=== PATIENT | female | born 1935 | race Caucasian/White ===

== ENCOUNTER → 2016-11-24 | Outpatient (CLI) | payer MEDICARE, OTHER ==
--- NOTE | 2016-11-24 09:11 | MRI ---
Study: MRI of the Left Hip. Indication: HIP PAIN Technique: Multiplanar, multi sequence MRI of the left hip was obtained without intravenous contrast. Comparison: None. Findings: No acute fracture or osteonecrosis of the pelvis or left hip. At the central left acetabular roof there is a focus of subchondral sclerosis surrounded by mild marrow edema which is likely secondary to a chronic occult overlying grade 4 chondral lesion. Grade 3 chondral thinning noted throughout the majority of the left hip joint. Physiologic volume left hip joint fluid. Degenerative tearing anterior superior left hip labrum suspected. Less pronounced grade 2/3 chondrosis throughout the right hip joint suspected without subchondral marrow change. Mild left greater trochanteric bursal edema. High-grade tendinosis bilateral hamstring tendon origins, left greater than right. No acute pelvic tendon tear. Mild pubic symphysis osteoarthritis. Lower lumbar fusion construct partially visualized. Impression: Mild to moderate left hip osteoarthritis with focal areas of subchondral marrow change central acetabular roof as detailed above. No acute fracture or osteonecrosis. Degenerative tearing anterior superior left hip labrum. Mild right hip osteoarthritis. Additional findings as above. Electronically signed by: Nicolás Barber MD 11/24/2016 09:11
== END | disposition home or self-care (01) ==
LOC: MRI 07:38
PROVIDERS: ATTEND Orthopaedic Surgery
DX: M16.11 Unilateral primary osteoarthritis, right hip (principal)

== ENCOUNTER → 2017-01-24 | Outpatient (CLI) | payer MEDICARE, OTHER ==
--- NOTE | 2017-01-24 18:59 | CT ---
EXAM DESCRIPTION: Abdomen/Pelvis w/wo Contrast CLINICAL HISTORY: DIVERTICULITIS / ABD PAIN COMPARISON: None Available TECHNIQUE: Contiguous axial images of the abdomen and pelvis were obtained followed by reconstruction images. This exam was performed according to our departmental dose-optimization program, which includes automated exposure control, adjustment of the mA and/or kV according to patient size and/or use of iterative reconstruction technique. FINDINGS: Linear opacities within the lungs may represent scar versus subsegmental atelectasis. Patient is status post cholecystectomy. There is atherosclerosis. Patient is status post lumbar surgery. Calcifications within the pelvis may represent phleboliths. Fluid levels within the colon could be secondary to a diarrheal state. Appendix was not visualized, there is no pericecal inflammation. The liver, spleen, pancreas and kidneys are within normal limits. There is no hydronephrosis or renal stones. Aorta is of normal caliber and tapering. There is no free fluid in the abdomen or pelvis. There is no bowel obstruction. There is no stranding of the mesenteric fat to suggest an inflammatory response. Focal mucosal thickening of the sigmoid colon, axial image 84 without discrete stranding of the adjacent fat. IMPRESSION: Air-fluid levels within the colon could be secondary to a diarrheal state. Questionable focal mucosal thickening of the sigmoid colon without stranding of the adjacent fat could be secondary to an infectious, inflammatory colitis of unknown chronicity. Recommend follow-up. Electronically signed by: Ronald Lewis MD 01/24/2017 6:57 PM CDT
== END | disposition home or self-care (01) ==
LOC: CT 17:13
PROVIDERS: ATTEND Nurse Practitioner Family
DX: R10.84 Generalized abdominal pain (principal)

== ENCOUNTER → 2017-06-21 | Outpatient (CLI) | payer MEDICARE, OTHER ==
--- NOTE | 2017-06-21 10:54 | RAD ---
EXAM DESCRIPTION: Foot,Right 3 Views CLINICAL HISTORY: 82 years, Female, PAIN COMPARISON: FINDINGS: Three views do not demonstrate fracture or dislocation. Moderate degenerative change with narrowing and spurring 1st metatarsal phalangeal joint. Small plantar heel spur. IMPRESSION: No fracture or dislocation. Mild degenerative change 1st metatarsophalangeal joint. Plantar heel spur. Electronically signed by: Konrad Berkowitz MD 06/21/2017 10:53 AM CDT
== END | disposition home or self-care (01) ==
LOC: RAD 07:36
PROVIDERS: ATTEND Orthopaedic Surgery
DX: M79.671 Pain in right foot (principal)

== ENCOUNTER 2018-08-22 07:03 | Emergency (ER) | payer MEDICARE, OTHER ==
--- NOTE | 2018-08-22 07:15 | ED.PDOC ---
History of Present Illness - General Chief Complaint: GI Problem Stated Complaint: N/V Time Seen by Provider: 08/22/18 07:12 Source: patient Exam Limitations: no limitations - History of Present Illness Initial Comments: Damaris Philip 83 y/o female stated that she had been having intermittent N/V for the last one week and sometimes loose stools unable to take any solid foods except liquid.No blood in stool or hematemesis,or dysuria Timing/Duration: 1 week, intermittent Severity: moderate Improving Factors: nothing Worsening Factors: eating - solids Associated Symptoms: other - see hpi Allergies/Adverse Reactions: Allergies NO KNOWN ALLERGY Allergy (Verified 12/21/12 09:46) Home Medications: Ambulatory Orders Aspirin [Aspirin/Enteric] 81 mg PO 3XW #0 06/26/13 Atenolol 25 mg PO DAILY #0 06/26/13 DULoxetine HCL [Cymbalta] 30 mg PO DAILY #0 06/26/13 Fenofibrate [Tricor] 145 mg PO DAILY #0 06/26/13 Hydrocodone 10 mg/APAP 650 mg [Lorcet 10] 1 tab PO .Q4H PRN #0 06/26/13 Potassium Chloride [Micro-K] 10 meq PO DAILY #0 cap 06/26/13 Valsartan-Hydrochlorothiazide [Diovan Hct] 1 tab PO DAILY #0 tab 06/26/13 Fluticasone Propionate (Nasal) [Flonase Allergy Relief] 50 mcg NA DAILY PRN Gabapentin 2 ea PO BEDTIME 09/22/16 Ondansetron [Zofran Odt] 4 mg PO Q4H PRN #10 tab 09/22/16 Potassium Chloride [Micro-K] 20 meq PO DAILY #14 cap 09/22/16 Sucralfate Tab [Carafate Tab] 1 gm PO QID #30 tab 09/22/16 Nitrofurantoin Monohydrate Mac [Macrobid] 100 mg PO BID 5 Days #10 capsule 08/22 Ondansetron [Zofran Odt] 4 mg PO Q8HRS PRN #14 tab 08/22/18 Pantoprazole Sodium [Protonix] 20 mg PO ACBK #30 tablet 08/22/18 Review of Systems - Review of Systems Constitutional: States: no symptoms reported EENTM: States: no symptoms reported Respiratory: States: no symptoms reported Cardiology: States: no symptoms reported Gastrointestinal/Abdominal: States: see HPI, vomiting Genitourinary: States: no symptoms reported Musculoskeletal: States: no symptoms reported Skin: States: no symptoms reported Neurological: States: no symptoms reported Past Medical History (General) - Patient Medical History Hx Seizures: No Hx Stroke: No Hx Asthma: No Hx of COPD: No Hx Cardiac Disorders: Yes Hx Congestive Heart Failure: No Hx Pacemaker: No Hx Hypertension: Yes Hx Diabetes: No Hx Renal Disease: No Hx Cancer: No Hx MRSA: No Surgical History: appendectomy, cholecystectomy, other - back, hysterectomy.cataract - Vaccination History Hx Tetanus, Diphtheria Vaccination: No Hx Influenza Vaccination: Yes Hx Pneumococcal Vaccination: Yes - Social History Hx Tobacco Use: Yes Hx Alcohol Use: No Hx Substance Use: No Hx Physical Abuse: No Hx Emotional Abuse: No - Activities of Daily Living Patient Lives Alone: No - Female History Patient is a Female of Child Bearing Age (10 -59 yrs old): No Family Medical History - Family History Mother Living Status: Hx Family;Other: dad-alcoholism Physical Exam - Physical Exam General Appearance: Alert, Comfortable, No apparent distress Eye Exam: bilateral normal Ears, Nose, Throat: hearing grossly normal, normal ENT inspection, normal pharynx Neck: supple, normal inspection Respiratory: chest non-tender, lungs clear, normal breath sounds, no respiratory distress Cardiovascular/Chest: normal peripheral pulses, regular rate, rhythm, no murmur Peripheral Pulses: radial,right: 2+, radial,left: 2+ Gastrointestinal/Abdominal: normal bowel sounds, non tender, soft, no organomegaly Back Exam: no CVA tenderness, no vertebral tenderness Extremity: no pedal edema, no calf tenderness Neurologic: alert, oriented x 3 Skin Exam: normal color, warm/dry Progress - Progress Progress: 08/22/18 07:35 Vital Signs - 8 hr 08/22/18 07:12 Temperature 97.6 F Pulse Rate [ 71 Left Radial] Respiratory 18 Rate Blood Pressure 109/87 [Left Arm] O2 Sat by Pulse 100 Oximetry - Results/Orders Results/Orders: 08/22/18 07:16 IV Care:Saline Lock per Protoc QSHIFT 08/22/18 08:50 URINE CULTURE W/COLONY COUNT Stat 08/22/18 09:03 Catheter:Straight .ONCE Laboratory Results - last 24 hr 08/22/18 08/22/18 07:30 08:50 WBC 3.6 L RBC 4.29 Hgb 12.9 Hct 38.7 MCV 90.3 MCH 30.1 MCHC 33.3 RDW 13.2 Plt Count 166 MPV 10.0 Absolute Neuts (auto) 2.30 Absolute Lymphs (auto) 0.90 L Absolute Monos (auto) 0.30 Absolute Eos (auto) 0.10 Absolute Basos (auto) 0.10 Neutrophils % 62.8 Lymphocytes % 23.8 Monocytes % 8.4 Eosinophils % 1.9 Basophils % 3.1 H PT 10.8 INR 1.08 PTT (SP) 27.0 Sodium 140 Potassium 3.5 L Chloride 106 Carbon Dioxide 27 Anion Gap 10.5 L BUN 12 Creatinine 0.79 BUN/Creatinine Ratio 15.2 Random Glucose 131 H Serum Osmolality 281.0 Calcium 8.9 Magnesium 1.8 Total Bilirubin 0.6 Direct Bilirubin 0.1 Indirect Bilirubin 0.5 AST 15 ALT 11 Alkaline Phosphatase 81 Creatine Kinase 25 L CK-MB (CK-2) 0.7 CK-MB (CK-2) % Not Reportable Troponin I < 0.02 Serum Total Protein 6.0 L Albumin 3.6 Lipase 30 Urine Color Yellow Urine Appearance Sl cloudy Urine pH 8.0 H Ur Specific Stopover 1.015 Urine Protein Negative Urine Glucose (UA) Negative Urine Ketones Negative Urine Blood Trace-intact H Urine Nitrite Positive H Urine Bilirubin Negative Urine Urobilinogen 0.2 Ur Leukocyte Esterase Trace H Urine RBC 1-3 Urine WBC 1-3 Ur Epithelial Cells 1-3 Urine Bacteria 3+ H Discuss all test results with patient that no acute findings noted except for mid uti that she need to take anibiotics for 5 days - EKG/XRAY/CT XRAY: chest - minimal interstitial edema,non specific bowel gas CT Ordered: Yes - ct abd/p-no acute findings noted Departure - Departure Clinical Impression: Nausea & vomiting Qualifiers: Vomiting type: unspecified Vomiting Intractability: non-intractable Qualified Code(s): R11.2 - Nausea with vomiting, unspecified Urinary tract infection Qualifiers: Urinary tract infection type: site unspecified Hematuria presence: without hematuria Qualified Code(s): N39.0 - Urinary tract infection, site not specified Time of Disposition: 10:28 Disposition: Discharge to Home or Self Care Condition: Fair Departure Forms: ED Discharge - Pt. Copy, Patient Portal Self Enrollment Instructions: Nausea and Vomiting, Adult (DC) Diet: bland diet, other - small frequent meal ;AVOID GREASY,SPICY FOODS UNTIL BETTER Referrals: Scott Vo MD [Primary Care Provider] - 1-2 Weeks Prescriptions: Ondansetron [Zofran Odt] 4 mg PO Q8HRS PRN #14 tab PRN Reason: Nausea Nitrofurantoin Monohydrate Mac [Macrobid] 100 mg PO BID 5 Days #10 capsule Pantoprazole Sodium [Protonix] 20 mg PO ACBK #30 tablet Home Medications: Ambulatory Orders Aspirin [Aspirin/Enteric] 81 mg PO 3XW #0 06/26/13 Atenolol 25 mg PO DAILY #0 06/26/13 DULoxetine HCL [Cymbalta] 30 mg PO DAILY #0 06/26/13 Fenofibrate [Tricor] 145 mg PO DAILY #0 06/26/13 Hydrocodone 10 mg/APAP 650 mg [Lorcet 10] 1 tab PO .Q4H PRN #0 06/26/13 Potassium Chloride [Micro-K] 10 meq PO DAILY #0 cap 06/26/13 Valsartan-Hydrochlorothiazide [Diovan Hct] 1 tab PO DAILY #0 tab 06/26/13 Fluticasone Propionate (Nasal) [Flonase Allergy Relief] 50 mcg NA DAILY PRN Gabapentin 2 ea PO BEDTIME 09/22/16 Ondansetron [Zofran Odt] 4 mg PO Q4H PRN #10 tab 09/22/16 Potassium Chloride [Micro-K] 20 meq PO DAILY #14 cap 09/22/16 Sucralfate Tab [Carafate Tab] 1 gm PO QID #30 tab 09/22/16 Nitrofurantoin Monohydrate Mac [Macrobid] 100 mg PO BID 5 Days #10 capsule 08/22 Ondansetron [Zofran Odt] 4 mg PO Q8HRS PRN #14 tab 08/22/18 Pantoprazole Sodium [Protonix] 20 mg PO ACBK #30 tablet 08/22/18 Additional Instructions: Return to Emergency room as needed;Continue with all home medications
[2018-08-22] MEDS ORDERED: SODIUM CHLORIDE 0.9% 500ML 500 ML IVS ONE (07:16)
[2018-08-22] MEDS ORDERED: SUCRALFATE 1 GM/10 ML 1 GM UD PO ONE (07:18)
--- NOTE | 2018-08-22 07:55 | RAD ---
One view chest. 1 view abdomen. Indication: n/v Comparison: Chest radiograph June 25, 2013. Impression: Cardiomegaly with minimal interstitial edema. Underlying pneumonia not excluded. Patient rotated to the right. Elevation right hemidiaphragm. No pleural effusion or pneumothorax. No free air. Bowel gas pattern nonspecific. No abnormal calcifications. L4-L5 posterior and interbody fusion construct noted. Cholecystectomy clips present. Electronically signed by: Nicolás Barber MD 08/22/2018 7:54 AM [employer]
--- NOTE | 2018-08-22 07:55 | RAD ---
One view chest. 1 view abdomen. Indication: n/v Comparison: Chest radiograph June 25, 2013. Impression: Cardiomegaly with minimal interstitial edema. Underlying pneumonia not excluded. Patient rotated to the right. Elevation right hemidiaphragm. No pleural effusion or pneumothorax. No free air. Bowel gas pattern nonspecific. No abnormal calcifications. L4-L5 posterior and interbody fusion construct noted. Cholecystectomy clips present. Electronically signed by: Nicolás Barber MD 08/22/2018 7:54 AM STOCK OR DELIVERY CLERK
--- NOTE | 2018-08-22 10:11 | CT ---
EXAM DESCRIPTION: Abdoment/Pelvis w/o Contrast: Computed Tomography. CLINICAL HISTORY: [place]. Generalized abdominal pain. COMPARISON: CT scan abdomen and pelvis without and with IV contrast 01/24/2017. TECHNIQUE: Spiral-axial scans 2.5 x 2.5 mm intervals through the abdomen and pelvis without oral or IV contrast. Coronal and sagittal 2.0 mm reconstructions. Total Exam DLP: 964.06 mGy-cm. This exam was performed according to our departmental CT dose-optimization program which includes automated exposure control, adjustment of the mA and/or kV according to patient size and/or use of iterative reconstruction technique; to reduce radiation dose to as low as reasonably achievable (ALARA). FINDINGS: Lung bases and pleura: Minimal pleural thickening and parenchymal scarring bilateral lower lobes and pleural bases. No effusion. Liver, stomach, spleen, and adrenal glands: Small sliding hiatal hernia. Fatty density in the garcia of the fundus and body of the stomach, otherwise negative. Solid organs are unremarkable. Pancreas, Gallbladder, and Ducts: Surgical clips in the gallbladder fossa with no fluid. Minimal dilation of the common bile duct is stable. Minimal steatosis of the pancreas stable. Kidneys and Ureters: Minimal cortical atrophy. Physiologic pararenal fascial thickening. No hydronephrosis or radiodense stones bilaterally. No significant findings in the bilateral ureters. Fatty density in the left kidney nonspecific. Mesentery: No fatty stranding or fascial thickening. No free air or free fluid. Aorta: Minimal atherosclerotic calcification of the abdominal aorta and ectasia. Small Bowel: Negative. Terminal Ileum/Cecum: Cecum is distended by fatty deposition in the garcia and gas. Terminal ileum is unremarkable. Appendix is not seen.. Colon: Minimal fatty deposition in the ascending colon. Normal distribution of gas and fecal matter with no obstruction. Pelvic Organs: Vaginal cuff negative. No fluid in the cul-de-sac. No radiodense stones in the urinary bladder. Spine and Bony Pelvis: Prior posterior fusion L4-L5 and S1. Thoracolumbar dextroscoliosis. Minimal arthrosis SI joints. No lytic or blastic bone lesions. Abdominal Wall/Back Soft Tissues: Minimal diastases at the umbilicus but no bowel hernia. IMPRESSION: 1. No free air or free fluid. No inflammatory changes in the peritoneal or retroperitoneal space. 2. Fatty deposition in the cecum with minimal distention and less deposition in the ascending colon. This can be seen with obesity or prior inflammatory bowel disease. Has increased since prior abdominal CT scan January 2017. No inflammatory changes in the surrounding fat. 3. Small sliding gastric hiatal hernia may be present on the prior study. 4. Stable lumbar fusion L4-S1. Electronically signed by: Deni Elliott MD 08/22/2018 10:09 AM [facility]
[2018-08-22] MEDS ORDERED: cefTRIAXone SODIUM 1 GM in SODIUM CHL 0.9% 50ML MIN-BAG+ 50 ML IVPB ONE (10:21)
[2018-08-22] MEDS ORDERED: cefTRIAXone SODIUM 1 GM VIAL ONE ×2 (10:24→10:30)
[2018-08-22] MEDS ORDERED: SODIUM CHL 0.9% 50ML MIN-BAG+ 0 ML IVPB ONE (10:25)
[2018-08-22] MEDS ORDERED: SODIUM CHL 0.9% 50ML MIN-BAG+ 50 ML IVPB ONE (10:30)
[2018-08-22 11:04] VITALS: BP 121/67; TEMP 97.1; O2SAT 99
== END 2018-08-22 10:45 | disposition home or self-care (01) ==
LOC: ER 07:03
DX: N39.0 Urinary tract infection, site not specified (principal); R11.2 Nausea with vomiting, unspecified; I10 Essential (primary) hypertension; I51.9 Heart disease, unspecified; Z87.891 Personal history of nicotine dependence; Z90.49 Acquired absence of other specified parts of digestive tract; Z79.899 Other long term (current) drug therapy; Z79.82 Long term (current) use of aspirin
CPT/HCPCS: 36415; 71045; 74018; 74176; 80048; 80076; 81001; 82550; 82553; 83690; 84484; 85025; 85610; 85730; 87077; 87086; 87186; J0696; J7040; J7050

== ENCOUNTER 2018-08-24 12:22 | Emergency (ER) | payer MEDICARE, OTHER ==
[2018-08-24] MEDS ORDERED: ONDANSETRON INJ 4 MG/2 ML VIAL IV ONE (12:37)
[2018-08-24] MEDS ORDERED: SODIUM CHLORIDE 0.9% 1000ML 1,000 ML IVS ONE (12:37)
--- NOTE | 2018-08-24 12:41 | ED.PDOC ---
History of Present Illness - General Chief Complaint: Abdominal Pain Stated Complaint: Vomiting Time Seen by Provider: 08/24/18 12:36 Information Source: patient Exam Limitations: no limitations - History of Present Illness Initial Comments: Pt has had vomiting without diarrhea x 1 week Abdominal Pain Onset Location: generalized abdomen Pain Radiation: no radiation Quality: moderate Timing/Duration: intermittent Improving Factors: nothing Worsening Factors: nothing Associated Symptoms: nausea/vomiting, weakness Review of Systems - Review of Systems Constitutional: States: malaise, weakness. Denies: chills, fever EENTM: States: no symptoms reported Respiratory: States: no symptoms reported Cardiology: States: no symptoms reported Gastrointestinal/Abdominal: States: nausea, vomiting. Denies: abdominal pain, diarrhea Genitourinary: States: no symptoms reported. Denies: dysuria, frequency Musculoskeletal: States: no symptoms reported Skin: States: no symptoms reported Neurological: States: no symptoms reported Endocrine: States: no symptoms reported Hematologic/Lymphatic: States: no symptoms reported Past Medical History (General) - Patient Medical History Hx Seizures: No Hx Stroke: No Hx Asthma: No Hx of COPD: No Hx Cardiac Disorders: Yes Hx Congestive Heart Failure: No Hx Pacemaker: No Hx Hypertension: Yes Hx Diabetes: No Hx Renal Disease: No Hx Cancer: No Hx MRSA: No - Vaccination History Hx Tetanus, Diphtheria Vaccination: No Hx Influenza Vaccination: Yes Hx Pneumococcal Vaccination: Yes - Social History Hx Tobacco Use: Yes Hx Alcohol Use: No Hx Substance Use: No Hx Physical Abuse: No Hx Emotional Abuse: No Family Medical History - Family History Mother Living Status: Hx Family;Other: dad-alcoholism Physical Exam - Physical Exam General Appearance: Alert, Other - Mild distress Eyes, Ears, Nose, Throat Exam: PERRL/EOMI, pharynx normal Neck: non-tender, full range of motion, supple Respiratory: chest non-tender, lungs clear, normal breath sounds Cardiovascular/Chest: normal peripheral pulses, regular rate, rhythm Gastrointestinal/Abdominal: normal bowel sounds, soft, distended, tenderness Extremity: normal range of motion, non-tender, normal inspection, no pedal edema Neurologic: alert, normal mood/affect, oriented x 3 Skin Exam: normal color, warm/dry Lymphatic: no adenopathy Departure - Departure Clinical Impression: Vomiting Qualifiers: Vomiting type: unspecified Vomiting Intractability: non-intractable Nausea presence: with nausea Qualified Code(s): R11.2 - Nausea with vomiting, unspecified Disposition: Discharge to Home or Self Care Departure Forms: ED Discharge - Pt. Copy, Patient Portal Self Enrollment Instructions: DI for Abdominal Pain-Adult Referrals: Scott Vo MD [Primary Care Provider] - 1-2 Weeks Prescriptions: Promethazine Tab [Phenergan Tablet] 25 mg PO .Q4H PRN #15 tab PRN Reason: Nausea Home Medications: Ambulatory Orders Aspirin [Aspirin/Enteric] 81 mg PO 3XW #0 06/26/13 Atenolol 25 mg PO DAILY #0 06/26/13 DULoxetine HCL [Cymbalta] 30 mg PO DAILY #0 06/26/13 Fenofibrate [Tricor] 145 mg PO DAILY #0 06/26/13 Hydrocodone 10 mg/APAP 650 mg [Lorcet 10] 1 tab PO .Q4H PRN #0 06/26/13 Potassium Chloride [Micro-K] 10 meq PO DAILY #0 cap 06/26/13 Valsartan-Hydrochlorothiazide [Diovan Hct] 1 tab PO DAILY #0 tab 06/26/13 Fluticasone Propionate (Nasal) [Flonase Allergy Relief] 50 mcg NA DAILY PRN Gabapentin 2 ea PO BEDTIME 09/22/16 Ondansetron [Zofran Odt] 4 mg PO Q4H PRN #10 tab 09/22/16 Potassium Chloride [Micro-K] 20 meq PO DAILY #14 cap 09/22/16 Sucralfate Tab [Carafate Tab] 1 gm PO QID #30 tab 09/22/16 Nitrofurantoin Monohydrate Mac [Macrobid] 100 mg PO BID 5 Days #10 capsule 08/22 Ondansetron [Zofran Odt] 4 mg PO Q8HRS PRN #14 tab 08/22/18 Pantoprazole Sodium [Protonix] 20 mg PO ACBK #30 tablet 08/22/18 Promethazine Tab [Phenergan Tablet] 25 mg PO .Q4H PRN #15 tab 08/24/18
[2018-08-24 12:43] VITALS: TEMP 98.3; O2SAT 100
--- NOTE | 2018-08-24 13:11 | RAD ---
EXAM DESCRIPTION: KUB CLINICAL HISTORY: 83 years Female, vomiting COMPARISON: August 22, 2018 FINDINGS: Gallbladder surgically absent. Postoperative changes are noted in the lumbar spine. The bowel gas pattern is nonobstructive. No suspicious intra-abdominal calcification or mass. No acute bone lesion. IMPRESSION: No acute findings. Electronically signed by: Nico Singh MD 08/24/2018 1:10 PM [facility]
[2018-08-24 15:15] VITALS: BP 149/75
== END 2018-08-24 15:15 | disposition home or self-care (01) ==
LOC: ER 12:22
DX: R11.2 Nausea with vomiting, unspecified (principal); I10 Essential (primary) hypertension; I51.9 Heart disease, unspecified; Z87.891 Personal history of nicotine dependence
CPT/HCPCS: 36415; 74018; 80053; 85025; J2405; J7030

== ENCOUNTER 2018-09-06 04:47 | Emergency (ER) | payer MEDICARE, OTHER ==
[2018-09-06 04:54] VITALS: TEMP 97.6
--- NOTE | 2018-09-06 06:07 | RAD ---
Procedure: XR ABDOMEN SUPINE AND ERECT WITH CHEST (ABD ACUTE SERIES) Exam Date: 09/06/2018 Ordering Provider: Santos Oh Clinical Indication: shortness of breath Comparison: 08/22/2018 Findings: Upright chest x-ray: Cardiomegaly. There is no consolidation or effusion. No pneumothorax. Flat and upright abdomen: Nonobstructive bowel gas pattern. There is no pneumoperitoneum. There are no suspicious calcifications. No acute osseous abnormalities. Scoliosis. Postsurgical changes in the lumbar spine. Cholecystectomy clips. Impression: 1. No acute findings. Electronically signed by: Adarsh Sow MD 09/06/2018 6:05 AM [facility]
[2018-09-06] MEDS: POTASSIUM CHLORIDE ELIXIR 20 MEQ/15 ML UD PO ONE (06:43)
--- NOTE | 2018-09-06 06:45 | ED.PDOC ---
History of Present Illness - General Chief Complaint: Respiratory Problem Stated Complaint: Shortness of Breath Time Seen by Provider: 09/06/18 05:00 Source: patient, family Exam Limitations: no limitations - History of Present Illness Initial Comments: the patient is an 83-year-old female brought in by EMS secondary to report of shortness of breath. The patient is not having any chest pain. According to EMS arrived she was in a very significant panic attack and they had to give her some Ativan. By the time she arrived here he was no longer in a panic attack and was having no shortness of breath. She did not have any hypoxia. Her vital signs been stable. The patient is alert and oriented 4 but a little bit drowsy after the Ativan. No chest wall pain. Lungs are clear. No leg pain or swelling. No abdominal pain. The patient had been up at the time watching a football game when the shortness of breath started. Timing/Duration: unsure, 4-6 hours Severity: moderate Improving Factors: nothing Worsening Factors: nothing Associated Symptoms: shortness of breath Allergies/Adverse Reactions: Allergies NO KNOWN ALLERGY Allergy (Verified 12/21/12 09:46) Home Medications: Ambulatory Orders Aspirin [Aspirin/Enteric] 81 mg PO 3XW #0 06/26/13 Atenolol 25 mg PO DAILY #0 06/26/13 DULoxetine HCL [Cymbalta] 30 mg PO DAILY #0 06/26/13 Fenofibrate [Tricor] 145 mg PO DAILY #0 06/26/13 Hydrocodone 10 mg/APAP 650 mg [Lorcet 10] 1 tab PO .Q4H PRN #0 06/26/13 Potassium Chloride [Micro-K] 10 meq PO DAILY #0 cap 06/26/13 Valsartan-Hydrochlorothiazide [Diovan Hct] 1 tab PO DAILY #0 tab 06/26/13 Fluticasone Propionate (Nasal) [Flonase Allergy Relief] 50 mcg NA DAILY PRN Gabapentin 2 ea PO BEDTIME 09/22/16 Ondansetron [Zofran Odt] 4 mg PO Q4H PRN #10 tab 09/22/16 Potassium Chloride [Micro-K] 20 meq PO DAILY #14 cap 09/22/16 Sucralfate Tab [Carafate Tab] 1 gm PO QID #30 tab 09/22/16 Nitrofurantoin Monohydrate Mac [Macrobid] 100 mg PO BID 5 Days #10 capsule 08/22 Ondansetron [Zofran Odt] 4 mg PO Q8HRS PRN #14 tab 08/22/18 Pantoprazole Sodium [Protonix] 20 mg PO ACBK #30 tablet 08/22/18 Promethazine Tab [Phenergan Tablet] 25 mg PO .Q4H PRN #15 tab 08/24/18 ALPRAZolam [Xanax] 0.5 mg PO PRN #5 tab 09/06/18 Review of Systems - Review of Systems Constitutional: States: no symptoms reported EENTM: States: no symptoms reported Respiratory: States: short of breath Cardiology: States: no symptoms reported Gastrointestinal/Abdominal: States: no symptoms reported Genitourinary: States: no symptoms reported Musculoskeletal: States: no symptoms reported Skin: States: no symptoms reported Neurological: States: anxiety Endocrine: States: no symptoms reported All other Systems: No Change from Baseline Past Medical History (General) - Patient Medical History Hx Seizures: No Hx Stroke: No Hx Dementia: No Hx Asthma: No Hx of COPD: No Hx Cardiac Disorders: Yes Hx Congestive Heart Failure: No Hx Pacemaker: No Hx Hypertension: Yes Hx Thyroid Disease: No Hx Diabetes: No Hx Gastroesophageal Reflux: No Hx Renal Disease: No Hx Cancer: No Hx of HIV: No Hx Hepatitis C: No Hx MRSA: No Surgical History: cholecystectomy, Hysterectomy - Vaccination History Hx Tetanus, Diphtheria Vaccination: No Hx Influenza Vaccination: Yes Hx Pneumococcal Vaccination: Yes - Social History Hx Tobacco Use: Yes Hx Alcohol Use: No Hx Substance Use: No Hx Depression: No Feels Threatened In Home Enviroment: No Feels Threatened In a Relationship: No Hx Physical Abuse: No Hx Emotional Abuse: No Hx Suspected Abuse: No - Activities of Daily Living Hospice Agency (if applicable):: None - Female History Patient is a Female of Child Bearing Age (10 -59 yrs old): No - Triage Comment ED Triage Comment: Pt states that she was watching the football game and started feeling like she couldn't breathe. Pt states she went outside to try and get some air. Family Medical History - Family History Mother Living Status: Hx Family;Other: dad-alcoholism Physical Exam - Physical Exam General Appearance: Alert - sleepy, Comfortable, No apparent distress Eye Exam: bilateral normal Ears, Nose, Throat: hearing grossly normal, normal ENT inspection, normal pharynx Neck: full range of motion, supple Respiratory: lungs clear, normal breath sounds, no respiratory distress, no accessory muscle use Cardiovascular/Chest: normal peripheral pulses, regular rate, rhythm, no edema Peripheral Pulses: radial,right: 2+, radial,left: 2+, dorsalis pedis,right: 2+, dorsalis pedis,left: 2+ Gastrointestinal/Abdominal: non tender, soft Rectal Exam: deferred Back Exam: normal inspection, no CVA tenderness Extremity: non-tender, normal inspection, no pedal edema, normal capillary refill Neurologic: vegetable packer II-XII nml as tested, no motor/sensory deficits, alert - sleepy , oriented x 3 Skin Exam: normal color Comments: Vital Signs - 24 hr 09/06/18 09/06/18 09/06/18 04:52 05:04 05:48 Temperature 97.6 F Pulse Rate [ 68 68 68 Monitor] Respiratory 20 20 18 Rate Blood Pressure 131/66 124/60 [Left Arm] O2 Sat by Pulse 99 95 Oximetry Progress - Progress Progress: 09/06/18 06:47 the patient is an 83-year-old female presenting to the emergency room with what appears to be primarily an anxiety attack at this time. No other significant source for shortness of breath has been found and symptoms have essentially resolved at this point. the patient does also have some mild hypokalemia and was given a dose of potassium here today. She does need to follow up with her primary care doctor and have this rechecked as well as for follow-up for her anxiety. she will be written for a few tablets of Xanax for as needed use for any future panic attacks. laboratory work otherwise looks reassuring. I would recommend that the patient be prepared to give a urinalysis when she follows up with her primary care doctor as she has had issues with that in the past and has been unable to provide one here tonight. She is not having any symptoms of any urinary tract infection currently. ER warnings were given for a significant worsening. - Results/Orders Results/Orders: acute abdominal series shows no significant acute pathology. She does have mild chronic cardiomegaly. EKG shows normal sinus rhythm at 63 bpm with a first-degree AV block. She does have long-standing poor R-wave progression when compared to her previous EKGs. No ST segment or T-wave changes definitive for acute ischemia when compared to previous EKGs. Normal corrected QT interval. Laboratory Tests 09/06/18 09/06/18 05:41 05:41 WBC 5.7 RBC 4.11 L Hgb 12.5 Hct 37.4 MCV 91.2 MCH 30.4 MCHC 33.4 RDW 13.6 Plt Count 155 MPV 10.0 Absolute Neuts (auto) 3.80 Absolute Lymphs (auto) 1.10 Absolute Monos (auto) 0.60 Absolute Eos (auto) 0.10 Absolute Basos (auto) 0.10 Neutrophils % 66.2 Lymphocytes % 19.7 L Monocytes % 11.0 H Eosinophils % 2.0 Basophils % 1.1 Sodium 138 Potassium 3.4 L Chloride 105 Carbon Dioxide 25 Anion Gap 11.4 L BUN 11 Creatinine 0.84 BUN/Creatinine Ratio 13.1 Random Glucose 106 H Serum Osmolality 275.5 Calcium 8.8 Total Bilirubin 1.0 AST 22 ALT 14 Alkaline Phosphatase 85 Creatine Kinase 36 CK-MB (CK-2) 0.9 CK-MB (CK-2) % Not Reportable Troponin I < 0.02 B-Natriuretic Peptide 75.6 Serum Total Protein 5.7 L Albumin 3.5 Globulin 2.2 L Albumin/Globulin Ratio 1.6 Departure - Departure Clinical Impression: Anxiety attack Disposition: Discharge to Home or Self Care Condition: Good Departure Forms: ED Discharge - Pt. Copy, Patient Portal Self Enrollment Instructions: Anxiety, Adult (DC), Panic Disorder (DC) Diet: regular diet Activity: increase activity as tolerated Referrals: Scott Vo MD [Primary Care Provider] - 1-5 Days Prescriptions: ALPRAZolam [Xanax] 0.5 mg PO PRN #5 tab Home Medications: Ambulatory Orders Aspirin [Aspirin/Enteric] 81 mg PO 3XW #0 06/26/13 Atenolol 25 mg PO DAILY #0 06/26/13 DULoxetine HCL [Cymbalta] 30 mg PO DAILY #0 06/26/13 Fenofibrate [Tricor] 145 mg PO DAILY #0 06/26/13 Hydrocodone 10 mg/APAP 650 mg [Lorcet 10] 1 tab PO .Q4H PRN #0 06/26/13 Potassium Chloride [Micro-K] 10 meq PO DAILY #0 cap 06/26/13 Valsartan-Hydrochlorothiazide [Diovan Hct] 1 tab PO DAILY #0 tab 06/26/13 Fluticasone Propionate (Nasal) [Flonase Allergy Relief] 50 mcg NA DAILY PRN Gabapentin 2 ea PO BEDTIME 09/22/16 Ondansetron [Zofran Odt] 4 mg PO Q4H PRN #10 tab 09/22/16 Potassium Chloride [Micro-K] 20 meq PO DAILY #14 cap 09/22/16 Sucralfate Tab [Carafate Tab] 1 gm PO QID #30 tab 09/22/16 Nitrofurantoin Monohydrate Mac [Macrobid] 100 mg PO BID 5 Days #10 capsule 08/22 Ondansetron [Zofran Odt] 4 mg PO Q8HRS PRN #14 tab 08/22/18 Pantoprazole Sodium [Protonix] 20 mg PO ACBK #30 tablet 08/22/18 Promethazine Tab [Phenergan Tablet] 25 mg PO .Q4H PRN #15 tab 08/24/18 ALPRAZolam [Xanax] 0.5 mg PO PRN #5 tab 09/06/18 Additional Instructions: the patient is an 83-year-old female presenting to the emergency room with what appears to be primarily an anxiety attack at this time. No other significant source for shortness of breath has been found and symptoms have essentially resolved at this point. the patient does also have some mild hypokalemia and was given a dose of potassium here today. She does need to follow up with her primary care doctor and have this rechecked as well as for follow-up for her anxiety. she will be written for a few tablets of Xanax for as needed use for any future panic attacks. laboratory work otherwise looks reassuring. I would recommend that the patient be prepared to give a urinalysis when she follows up with her primary care doctor as she has had issues with that in the past and has been unable to provide one here tonight. She is not having any symptoms of any urinary tract infection currently. ER warnings were given for a significant worsening.
[2018-09-06 08:06] VITALS: BP 121/51; O2SAT 98
== END 2018-09-06 07:55 | disposition home or self-care (01) ==
LOC: ER 04:47
DX: F41.9 Anxiety disorder, unspecified (principal); I44.0 Atrioventricular block, first degree; I51.7 Cardiomegaly; I10 Essential (primary) hypertension; Z87.891 Personal history of nicotine dependence; Z79.82 Long term (current) use of aspirin; Z79.899 Other long term (current) drug therapy

== ENCOUNTER 2018-09-07 10:08 | Emergency (ER) | payer MEDICARE, OTHER ==
--- NOTE | 2018-09-07 10:18 | ED.PDOC ---
History of Present Illness - General Chief Complaint: General Stated Complaint: sob Time Seen by Provider: 09/07/18 10:15 Source: patient, EMS Exam Limitations: other - patient was given Ativan 1 mg iv and somnolent - History of Present Illness Initial Comments: Damaris Philip 83 y/o female brought by EMS after they were called up by patients that she was sob.On ems arrival pulse oximeter taken 100% with NH-100 was a little bit irritable so she was given Ativan 1 mg.which calmed her down. also stated that she had been forgetful for the last 5-6 months.She was seen here 06 Sep 2018 was worked up but no acute findings noted.Was discharge with Alprazolam 1 mg #5.She has history of anxiety symptoms. Timing/Duration: 24 hours Severity: moderate Improving Factors: nothing Worsening Factors: nothing Associated Symptoms: shortness of breath Allergies/Adverse Reactions: Allergies NO KNOWN ALLERGY Allergy (Verified 12/21/12 09:46) Home Medications: Ambulatory Orders Aspirin [Aspirin/Enteric] 81 mg PO 3XW #0 06/26/13 Atenolol 25 mg PO DAILY #0 06/26/13 Hydrocodone 10 mg/APAP 650 mg [Lorcet 10] 1 tab PO .Q4H PRN #0 06/26/13 Potassium Chloride [Micro-K] 10 meq PO DAILY #0 cap 06/26/13 Gabapentin 2 ea PO TID 09/22/16 Pantoprazole Sodium [Protonix] 20 mg PO ACBK #30 tablet 08/22/18 Promethazine Tab [Phenergan Tablet] 25 mg PO .Q4H PRN #15 tab 08/24/18 ALPRAZolam [Xanax] 0.5 mg PO PRN #5 tab 09/06/18 Alprazolam 0.5 mg PO Q6HRS #14 tab 09/07/18 Citalopram Hydrobromide [Celexa] 10 mg PO DAILY@0700 #14 tab 09/07/18 Losartan Potassium & Hydrochlo [Losartan Potassium/Hydroc 50-12.5 mg] 1 tab PO DAILY 09/07/18 Tizanidine HCl [Tizanidine Hydrochloride] 2 mg PO BEDTIME 09/07/18 Review of Systems - Review of Systems Constitutional: States: no symptoms reported EENTM: States: no symptoms reported Respiratory: States: see HPI Cardiology: States: no symptoms reported Gastrointestinal/Abdominal: States: see HPI Genitourinary: States: no symptoms reported Musculoskeletal: States: no symptoms reported Skin: States: no symptoms reported Neurological: States: anxiety Past Medical History (General) - Patient Medical History Hx Seizures: No Hx Stroke: No Hx Dementia: No Hx Asthma: No Hx of COPD: No Hx Cardiac Disorders: Yes Hx Congestive Heart Failure: No Hx Pacemaker: No Hx Hypertension: Yes Hx Thyroid Disease: No Hx Diabetes: No Hx Gastroesophageal Reflux: No Hx Renal Disease: No Hx Cancer: No Hx of HIV: No Hx Hepatitis C: No Hx MRSA: No Surgical History: appendectomy, cholecystectomy, other - back,hysterectomy, cataract - Vaccination History Hx Tetanus, Diphtheria Vaccination: No Hx Influenza Vaccination: Yes Hx Pneumococcal Vaccination: Yes - Social History Hx Tobacco Use: Yes Hx Alcohol Use: No Hx Substance Use: No Hx Depression: No Hx Physical Abuse: No Hx Emotional Abuse: No Hx Suspected Abuse: No Family Medical History - Family History Mother Living Status: Hx Family;Other: dad-alcoholism Physical Exam - Physical Exam General Appearance: Comfortable, No apparent distress, Well Groomed, Well Nourished, Other - somnolent Eye Exam: bilateral normal Ears, Nose, Throat: hearing grossly normal, normal ENT inspection, normal pharynx Neck: non-tender, full range of motion, supple Respiratory: chest non-tender, lungs clear, normal breath sounds Cardiovascular/Chest: normal peripheral pulses, regular rate, rhythm, no murmur Peripheral Pulses: radial,right: 2+, radial,left: 2+ Gastrointestinal/Abdominal: normal bowel sounds, non tender, soft, no organomegaly Extremity: no pedal edema, no calf tenderness Neurologic: no motor/sensory deficits, alert, oriented x 3 Skin Exam: normal color, warm/dry Progress - Progress Progress: 09/07/18 11:26 Vital Signs - 8 hr 09/07/18 09/07/18 09/07/18 10:17 11:06 11:09 Temperature 97 F L Pulse Rate [ 75 72 Right Brachial] Respiratory 20 20 20 Rate Blood Pressure 151/74 117/72 [Right Arm] O2 Sat by Pulse 98 99 Oximetry - Results/Orders Results/Orders: 09/07/18 11:30 EKG STAT Laboratory Results - last 24 hr 09/07/18 09/07/18 09/07/18 10:27 10:27 10:57 WBC 4.1 L RBC 4.65 Hgb 14.1 Hct 41.9 MCV 90.1 MCH 30.3 MCHC 33.7 RDW 13.5 Plt Count 200 MPV 10.3 Absolute Neuts (auto) 2.40 Absolute Lymphs (auto) 1.20 Absolute Monos (auto) 0.40 Absolute Eos (auto) 0.10 Absolute Basos (auto) 0.10 Neutrophils % 58.6 Lymphocytes % 28.7 Monocytes % 10.2 H Eosinophils % 1.3 Basophils % 1.2 PT 10.7 INR 1.07 PTT (SP) 26.1 D-Dimer, Quantitative 0.46 Sodium 140 Potassium 3.6 Chloride 106 Carbon Dioxide 25 Anion Gap 12.6 BUN 9 Creatinine 0.75 BUN/Creatinine Ratio 12.0 Random Glucose 122 H Serum Osmolality 279.4 Lactic Acid Calcium 9.5 Magnesium 2.0 Total Bilirubin 0.7 Direct Bilirubin 0.2 Indirect Bilirubin 0.5 AST 17 ALT 13 Alkaline Phosphatase 95 Creatine Kinase 20 L D CK-MB (CK-2) 0.6 CK-MB (CK-2) % Not Reportable Troponin I < 0.02 B-Natriuretic Peptide 75.4 Serum Total Protein 7.0 Albumin 4.0 TSH 0.63 Urine Color Urine Appearance Urine pH Ur Specific [place] Urine Protein Urine Glucose (UA) Urine Ketones Urine Blood Urine Nitrite Urine Bilirubin Urine Urobilinogen Ur Leukocyte Esterase Urine RBC Urine WBC Ur Epithelial Cells Urine Bacteria Urine Opiates Screen Urine Barbiturates Ur Phencyclidine Scrn U Amphetamin/Meth Scrn U Benzodiazepines Scrn U Cocaine Metab Screen U Cannabinoids Screen RPR Nonreactive 09/07/18 09/07/18 09/07/18 10:57 13:11 13:30 WBC RBC Hgb Hct MCV MCH MCHC RDW Plt Count MPV Absolute Neuts (auto) Absolute Lymphs (auto) Absolute Monos (auto) Absolute Eos (auto) Absolute Basos (auto) Neutrophils % Lymphocytes % Monocytes % Eosinophils % Basophils % PT INR PTT (SP) D-Dimer, Quantitative Sodium Potassium Chloride Carbon Dioxide Anion Gap BUN Creatinine BUN/Creatinine Ratio Random Glucose Serum Osmolality Lactic Acid 1.0 Calcium Magnesium Total Bilirubin Direct Bilirubin Indirect Bilirubin AST ALT Alkaline Phosphatase Creatine Kinase CK-MB (CK-2) CK-MB (CK-2) % Troponin I B-Natriuretic Peptide Serum Total Protein Albumin TSH Urine Color Yellow Urine Appearance Clear Urine pH 7.5 Ur Specific [place] 1.015 Urine Protein Negative Urine Glucose (UA) Negative Urine Ketones Negative Urine Blood Trace-intact H Urine Nitrite Negative Urine Bilirubin Negative Urine Urobilinogen 0.2 Ur Leukocyte Esterase Negative Urine RBC 0-1 Urine WBC 0 Ur Epithelial Cells 1-3 Urine Bacteria 0 Urine Opiates Screen Positive H Urine Barbiturates Negative Ur Phencyclidine Scrn Negative U Amphetamin/Meth Scrn Negative U Benzodiazepines Scrn Positive H U Cocaine Metab Screen Negative U Cannabinoids Screen Negative RPR Discuss with Wolf Guerrero -ANP/Hospitalist for admit in OBS but no criteria for hospital admission after talking to her primary Md and advised to follow up at his [facility].Hospitalist talked with patients .Recommend to call up [facility] but declined.Discuss all test result with patients and no acute abnormalities noted. - EKG/XRAY/CT EKG: Sinus, nonspecific ST T wave Chg Comments: HR-72 XRAY: chest - no acute lung abnormalities CT: [id number] PE no other acute abnormalities CT Ordered: Yes - no acute intracranial abnormalities Departure - Departure Clinical Impression: SOB (shortness of breath), Confusion, Anxiety attack Time of Disposition: 15:24 Disposition: Discharge to Home or Self Care Condition: Fair Departure Forms: ED Discharge - Pt. Copy, Patient Portal Self Enrollment Instructions: Anxiety, Adult (DC), Generalized Anxiety Disorder (DC), Generalized Anxiety Disorder Referrals: Scott Vo MD [Primary Care Provider] - 1-2 Weeks Prescriptions: Alprazolam 0.5 mg PO Q6HRS #14 tab Citalopram Hydrobromide [Celexa] 10 mg PO DAILY@0700 #14 tab Home Medications: Ambulatory Orders Aspirin [Aspirin/Enteric] 81 mg PO 3XW #0 06/26/13 Atenolol 25 mg PO DAILY #0 06/26/13 Hydrocodone 10 mg/APAP 650 mg [Lorcet 10] 1 tab PO .Q4H PRN #0 06/26/13 Potassium Chloride [Micro-K] 10 meq PO DAILY #0 cap 06/26/13 Gabapentin 2 ea PO TID 09/22/16 Pantoprazole Sodium [Protonix] 20 mg PO ACBK #30 tablet 08/22/18 Promethazine Tab [Phenergan Tablet] 25 mg PO .Q4H PRN #15 tab 08/24/18 ALPRAZolam [Xanax] 0.5 mg PO PRN #5 tab 09/06/18 Alprazolam 0.5 mg PO Q6HRS #14 tab 09/07/18 Citalopram Hydrobromide [Celexa] 10 mg PO DAILY@0700 #14 tab 09/07/18 Losartan Potassium & Hydrochlo [Losartan Potassium/Hydroc 50-12.5 mg] 1 tab PO DAILY 09/07/18 Tizanidine HCl [Tizanidine Hydrochloride] 2 mg PO BEDTIME 09/07/18 Additional Instructions: Follow up with primary Md 09 Sep 2018
[2018-09-07 10:22] VITALS: TEMP 97
--- NOTE | 2018-09-07 10:36 | RAD ---
PROCEDURE: XR CHEST 1 VIEW HISTORY: sob COMPARISON: 08/22/2018 TECHNIQUE: Single projection of the chest was done. FINDINGS: There are no discrete airspace infiltrates, pneumothoraces or pleural effusions. The pulmonary vascularity is normal. The cardiomediastinal silhouette is stable. IMPRESSION: There is no acute pleural-parenchymal process seen in the imaged lung donald. Location of Interpretation: Teleradiology Electronically signed by: Jorge Greer MD 09/07/2018 10:35 AM [facility] Workstation: [id number]
--- NOTE | 2018-09-07 10:53 | CT ---
PROCEDURE: Head HISTORY: AMS-confusion Indication: Same as above Comparison: None Technique: CT of the head was done without intravenous contrast was done in the orthogonal planes. This exam was performed according to our departmental dose-optimization program, which includes automated exposure control, adjustment of the mA and/or KV according to the patient's size and/or use of iterative reconstruction technique. FINDINGS: There is no intracranial hemorrhage, midline shift mass effect or acute focal infarct. There is mild prominence of the sylvian fissures and the cortical sulci reflecting age related volume loss. There is minimal periventricular and deep white matter low attenuation, most likely related to small vessel white matter ischemic disease. If clinical concern exists regarding an acute ischemic/vascular pathology being responsible for patient's symptomatology, an MRI of the brain is more sensitive than the current study, in ruling out such a possibility. There is good huynh/white matter differentiation. The ventricular system is normal. The mastoid air cells are unremarkable . The paranasal sinuses show changes of mild right middle ethmoidal air cells sinusitis . There is no visualization of acute fractures involving the calvarium or the skull base. IMPRESSION: There is no acute intracranial abnormality. Electronically signed by: Jorge Greer MD 09/07/2018 10:52 AM [employer] Workstation: [id number]
[2018-09-07] MEDS: SODIUM CHLORIDE 0.9% 1000ML 1,000 ML IVS ONE (13:53)
--- NOTE | 2018-09-07 13:59 | CT ---
PROCEDURE: CTA Chest CLINICAL HISTORY: 83 years Female sob COMPARISON: None. TECHNIQUE: Contiguous axial images were obtained through the chest during the infusion of IV contrast. Reformatted images obtained. MIP reformatted images obtained. This exam was performed according to our department optimization program which includes automated exposure control, adjustment of the mA and/or kv according to patient size and/or use of iterative reconstruction technique. FINDINGS: There is mild enlargement of mediastinal lymph nodes. Trace fluid is in the pericardial recesses. The heart is mildly enlarged. There is mild groundglass opacification diffusely involving both lungs. This may be exaggerated by patient motion, which limits detail. Motion limits sensitivity for PE. Timing of the bolus also limits sensitivity for PE. No pneumothorax is seen. No PE is seen. No evidence of aortic aneurysm. No other significant abnormality. IMPRESSION: Mild interstitial disease. Motion artifact. Mild cardiomegaly. No evidence of pulmonary embolus. Electronically signed by: Deni Lin 09/07/2018 1:58 PM [employer] [employer]
[2018-09-07 14:24] VITALS: BP 144/38
[2018-09-07 15:48] VITALS: O2SAT 98
== END 2018-09-07 15:48 | disposition home or self-care (01) ==
LOC: ER 10:08
DX: R06.02 Shortness of breath (principal); F41.9 Anxiety disorder, unspecified; R41.0 Disorientation, unspecified; I10 Essential (primary) hypertension; I51.9 Heart disease, unspecified; Z87.891 Personal history of nicotine dependence; Z79.899 Other long term (current) drug therapy; Z79.82 Long term (current) use of aspirin
CPT/HCPCS: 36415; 70450; 71045; 71275; 80048; 80076; 80307; 81001; 82550; 82553; 83605; 83880; 84443; 84484; 85025; 85379; 85610; 85730; 86592; 93005; J7030

== ENCOUNTER → 2019-05-07 | Outpatient (CLI) | payer MEDICARE, OTHER | LOC: GMAJ 17:22 | PROVIDERS: ATTEND Family Medicine | DX: Z79.899 Other long term (current) drug therapy (principal); G89.4 Chronic pain syndrome; I10 Essential (primary) hypertension; E78.00 Pure hypercholesterolemia, unspecified ==

== ENCOUNTER → 2019-05-23 | Outpatient (CLI) | payer MEDICARE, OTHER ==
--- NOTE | 2019-05-26 19:55 | MAM ---
EXAM DESCRIPTION: 3D Screening BILATERAL : Digital Mammography. CLINICAL HISTORY: 84 years Female ANNUAL SCREENING . No complaints. No personal or family history of breast cancer. Childbirth. Postmenopausal 25+ years no HRT. Lifetime risk of developing breast cancer (Tyrer-Cuzick model)(%): 1.1. COMPARISON: 2-D digital screening bilateral mammography. 06/22/2011. Prior reports are not available. TECHNIQUE: Bilateral CC and MLO projection full-field images, digital tomosynthesis mammographic technique. Bilateral digital 2-D full-field MLO images. and CC images. CAD not available for tomosynthesis or 2-D images. FINDINGS: The breast parenchymal density pattern is: Scattered areas of fibroglandular density. No skin thickening or nipple retraction. Bilateral solitary microcalcifications. Right axillary lymph nodes. Mass density with mostly circumscribed margins approximately 5 mm in diameter, in the lower outer quadrant of the right breast 7:00 position, 5 cm from the nipple. Central calcification. Not seen on the prior study. No new focal, stellate mass or density, focal asymmetry , and no suspicious microcalcifications left breast. IMPRESSION: BI-RADS CATEGORY: 0 - INCOMPLETE- Need additional imaging evaluation. FOLLOW-UP: Recall for additional imaging: Right breast full-field LM tomosynthesis and 2-D images. Targeted right breast ultrasound of the region of interest.. Written communication concerning the IMPRESSION and Follow-up, will be mailed to the patient and referring health care provider. Electronically signed by: Deni Elliott MD 05/26/2019 7:53 PM CDT
== END ==
LOC: MAMMO 08:05
PROVIDERS: ATTEND Family Medicine
DX: Z12.31 Encounter for screening mammogram for malignant neoplasm of breast (principal)

== ENCOUNTER → 2019-07-24 | Outpatient (CLI) | payer MEDICARE, OTHER ==
--- NOTE | 2019-07-25 11:07 | MAM ---
EXAM DESCRIPTION: 3D Diagnostic, Right (accession [id number]), Breast,Right (accession [id number]): Ultrasound CLINICAL HISTORY: 84 yearsFemaleSCREENING . Mass density right breast. No personal or family history of breast cancer. Menarche age 12. Childbirth. Postmenopausal 25+ years. No HRT. Lifetime risk of developing breast cancer (Tyrer-Cuzick model)(%): 1.1. COMPARISON: Bilateral screening digital breast tomosynthesis 05/23/2019. TECHNIQUE: Right breast LM projection full-field images, digital mammographic tomosynthesis technique. Right breast 2-D digital full-field images. LM and CC projection CAD not available. . Transcutaneous scanning of the right breast utilizing huynh-scale and Doppler modes. Scanning performed by the life enrichment director ; observation by Dr. Elliott. FINDINGS: The breast parenchymal density pattern is: Scattered areas of fibroglandular density. No skin thickening or nipple retraction nodular density circumscribed margins and one or 2 central microcalcifications at the 7:00 position 5 cm from the nipple, anterior third of the breast. No new focal, stellate mass or density, focal asymmetry , and no suspicious microcalcifications right breast. Ultrasound: Scanning lower outer quadrant anterior right breast. Mixture of fibroglandular tissues and fatty tissues. 7:00 position 5 cm from the nipple shows 3.7 x 4.3 mm hypoechoic mass with circumscribed margins and eccentric location of echogenic tissue most likely hilum in a lymph node. Nonvascular. Wider than tall orientation and posterior acoustic enhancement. IMPRESSION: Benign exam. Diagnostic mammography and ultrasound appearance consistent with a lymph node. BIRAD CATEGORY: 2 BENIGN FINDINGS. RECOMMENDATIONS: FOLLOW UP: Return to routine digital bilateral mammographic screening, one year interval from May 2019. Written communication explaining the IMPRESSION and follow-up, will be mailed to the patient and referring health care provider. The FINDINGS and the FOLLOW-UP plan were reviewed in person with the patient after the examination. According to the [employer], yearly mammograms are recommended starting at age 40 and continuing as long as a woman is in good health. Any breast change noted on a breast self-exam should be reported promptly to the patient's healthcare provider. Breast MRI is recommended for women with an approximately 20-25% or greater lifetime risk of breast cancer, including women with a strong family history of breast or ovarian cancer and women who have been treated for Hodgkin's disease. A negative mammographic report should not delay tissue diagnosis in patients with significant clinical history or physical findings. Extremely dense breast tissue limits the sensitivity of digital mammography. Electronically signed by: Deni Elliott MD 07/25/2019 11:05 AM CDT
== END ==
LOC: MAMMO 08:58
PROVIDERS: ATTEND Family Medicine
DX: R92.8 Other abnormal and inconclusive findings on diagnostic imaging of breast (principal)
CPT/HCPCS: 76641; 77065; G0279

== ENCOUNTER 2019-11-14 06:37 | Inpatient (IN) | payer MEDICARE, OTHER ==
--- NOTE | 2019-11-14 06:54 | ED.PDOC ---
History of Present Illness - General Time Seen by Provider: 11/14/19 06:44 Source: patient Exam Limitations: no limitations - History of Present Illness Initial Comments: patient slipped and fell this am on the ice. s right hip pain with decreased rom. severe pain. no nv loss. no other injuries. Timing/Duration: momentarily Severity: severe Improving Factors: immobilization Worsening Factors: movement Associated Symptoms: denies symptoms Allergies/Adverse Reactions: Allergies NO KNOWN ALLERGY Allergy (Verified 11/14/19 07:12) Home Medications: Ambulatory Orders Aspirin [Aspirin/Enteric] 81 mg PO 3XW #0 06/26/13 Atenolol 25 mg PO DAILY #0 06/26/13 Hydrocodone 10 mg/APAP 650 mg [Lorcet 10] 1 tab PO .Q4H PRN #0 06/26/13 Potassium Chloride [Micro-K] 10 meq PO DAILY #0 cap 06/26/13 Gabapentin 2 ea PO TID 09/22/16 Pantoprazole Sodium [Protonix] 20 mg PO ACBK #30 tablet 08/22/18 Promethazine Tab [Phenergan Tablet] 25 mg PO .Q4H PRN #15 tab 08/24/18 ALPRAZolam [Xanax] 0.5 mg PO PRN #5 tab 09/06/18 Alprazolam 0.5 mg PO Q6HRS #14 tab 09/07/18 Citalopram Hydrobromide [Celexa] 10 mg PO DAILY@0700 #14 tab 09/07/18 Losartan Potassium & Hydrochlo [Losartan Potassium/Hydroc 50-12.5 mg] 1 tab PO DAILY 09/07/18 Tizanidine HCl [Tizanidine Hydrochloride] 2 mg PO BEDTIME 09/07/18 Acetaminophen [Tylenol] 325 mg PO DAILY #15 cap 11/14/19 Review of Systems - Review of Systems Constitutional: States: no symptoms reported EENTM: States: no symptoms reported Respiratory: States: no symptoms reported Cardiology: States: no symptoms reported Gastrointestinal/Abdominal: States: no symptoms reported Genitourinary: States: no symptoms reported Musculoskeletal: States: see HPI Skin: States: no symptoms reported Neurological: States: no symptoms reported Endocrine: States: no symptoms reported All other Systems: No Change from Baseline Past Medical History (General) - Patient Medical History Hx Seizures: No Hx Stroke: No Hx Dementia: No Hx Asthma: No Hx of COPD: No Hx Cardiac Disorders: Yes Hx Congestive Heart Failure: No Hx Pacemaker: No Hx Hypertension: Yes Hx Thyroid Disease: No Hx Diabetes: No Hx Gastroesophageal Reflux: No Hx Renal Disease: No Hx Cancer: No Hx of HIV: No Hx Hepatitis C: No Hx MRSA: No - Vaccination History Hx Tetanus, Diphtheria Vaccination: No Hx Influenza Vaccination: Yes Hx Pneumococcal Vaccination: Yes - Social History Hx Tobacco Use: Yes Hx Alcohol Use: No Hx Substance Use: No Hx Depression: No Hx Physical Abuse: No Hx Emotional Abuse: No Hx Suspected Abuse: No Family Medical History - Family History Mother Living Status: Hx Family;Other: dad-alcoholism Physical Exam - Physical Exam General Appearance: Alert, Obvious distress Eye Exam: bilateral normal Ears, Nose, Throat: hearing grossly normal, normal ENT inspection Neck: full range of motion Respiratory: lungs clear, normal breath sounds, no respiratory distress, no accessory muscle use Cardiovascular/Chest: normal peripheral pulses, no edema, other - regular rate Peripheral Pulses: radial,right: 2+, radial,left: 2+, dorsalis pedis,right: 2+, dorsalis pedis,left: 2+, posterior tibialis,right: 2+, posterior tibialis,left: 2+ Gastrointestinal/Abdominal: non tender, soft Rectal Exam: deferred Back Exam: no CVA tenderness, no vertebral tenderness Extremity: no pedal edema, no calf tenderness, other - see hpi Neurologic: donkey ride operator II-XII nml as tested, no motor/sensory deficits, alert, oriented x 3 Skin Exam: normal color Comments: xray of rt hip shows comminuted right intertroch fracture. Vital Signs - 24 hr 11/14/19 06:40 Temperature 97.5 F L Pulse Rate [ 75 monitor] Respiratory 20 Rate Blood Pressure 241/115 [Left Arm] O2 Sat by Pulse 95 Oximetry Laboratory Results - last 24 hr 11/14/19 11/14/19 11/14/19 06:30 06:30 06:30 WBC 6.6 RBC 4.62 Hgb 13.9 Hct 41.6 MCV 89.9 MCH 30.1 MCHC 33.5 RDW 13.3 Plt Count 200 MPV 10.0 Absolute Neuts (auto) 3.60 Absolute Lymphs (auto) 2.10 Absolute Monos (auto) 0.60 Absolute Eos (auto) 0.20 Absolute Basos (auto) 0.00 Neutrophils % 54.4 Lymphocytes % 32.1 Monocytes % 9.8 H Eosinophils % 3.0 Basophils % 0.7 PT 10.3 INR 1.04 PTT (SP) 25.8 Sodium 145 Potassium 3.8 Chloride 105 Carbon Dioxide 31 Anion Gap 12.8 BUN 14 Creatinine 1.03 BUN/Creatinine Ratio 13.6 Random Glucose 90 Serum Osmolality 288.7 Calcium 9.2 Total Bilirubin 0.8 AST 19 ALT 14 Alkaline Phosphatase 93 Serum Total Protein 7.0 Albumin 4.1 Globulin 2.9 Albumin/Globulin Ratio 1.4 Progress - Progress Progress: 11/14/19 07:21 patient with fall this am with comminuted right intertrochanteric hip fracture. patient will need operative intervention. npo for now. will contact ortho. follow bp,elevated due to pain for now. labs reassuring. ortho to evaluate. 11/14/19 07:27 Departure - Departure Clinical Impression: Closed right hip fracture Qualifiers: Encounter type: initial encounter Qualified Code(s): S72.001A - Fracture of unspecified part of neck of right femur, initial encounter for closed fracture Disposition: Admit Patient Diet: regular diet Activity: increase activity as tolerated Referrals: Scott Vo MD [Primary Care Provider] - 1-2 Weeks Prescriptions: Acetaminophen [Tylenol] 325 mg PO DAILY #15 cap Home Medications: Ambulatory Orders Aspirin [Aspirin/Enteric] 81 mg PO 3XW #0 06/26/13 Atenolol 25 mg PO DAILY #0 06/26/13 Hydrocodone 10 mg/APAP 650 mg [Lorcet 10] 1 tab PO .Q4H PRN #0 06/26/13 Potassium Chloride [Micro-K] 10 meq PO DAILY #0 cap 06/26/13 Gabapentin 2 ea PO TID 09/22/16 Pantoprazole Sodium [Protonix] 20 mg PO ACBK #30 tablet 08/22/18 Promethazine Tab [Phenergan Tablet] 25 mg PO .Q4H PRN #15 tab 08/24/18 ALPRAZolam [Xanax] 0.5 mg PO PRN #5 tab 09/06/18 Alprazolam 0.5 mg PO Q6HRS #14 tab 09/07/18 Citalopram Hydrobromide [Celexa] 10 mg PO DAILY@0700 #14 tab 09/07/18 Losartan Potassium & Hydrochlo [Losartan Potassium/Hydroc 50-12.5 mg] 1 tab PO DAILY 09/07/18 Tizanidine HCl [Tizanidine Hydrochloride] 2 mg PO BEDTIME 09/07/18 Acetaminophen [Tylenol] 325 mg PO DAILY #15 cap 11/14/19 Decision To Admit - Decistion To Admit Decision to Admit Reason: Medical Nature Decision to Admit Date: 11/14/19 Decision to Admit Time: 07:28
[2019-11-14] MEDS ORDERED: ePHEDrine SULF 50 MG/ML ONE (07:00)
[2019-11-14] MEDS ORDERED: raNITIdine HCL INJ 25 MG/ML VIAL ONE (07:00)
[2019-11-14] MEDS ORDERED: SODIUM CHLORIDE 0.9% 50 ML VIAL ONE (07:00)
[2019-11-14] MEDS ORDERED: LIDOCAINE 1% 10 ML VIAL INJ ONE (07:00)
[2019-11-14] MEDS ORDERED: DEXAMETHASONE INJ 10 MG/ML VIAL ONE (07:00)
[2019-11-14] MEDS ORDERED: METOPROLOL TARTRATE INJ 5 MG/5 ML VIAL IV ONE (07:00)
[2019-11-14] MEDS ORDERED: KETOROLAC TROMETHAMINE INJ 30 MG/ML VIAL ONE (07:00)
[2019-11-14] MEDS ORDERED: PROPOFOL 200 MG/20 ML VIAL IV ONE (07:00)
[2019-11-14] MEDS ORDERED: HYDROmorphone HCL INJ 2 MG/ML VIAL IV ONE ×2 (07:13→08:54)
--- NOTE | 2019-11-14 07:15 | RAD ---
EXAM: X-ray femur two views CLINICAL DATA: 84-year-old female status post fall with right femur pain TECHNICAL DATA: Two x-ray views of the right femur were performed on 11/14/2019 at 6:57 AM. COMPARISONS: None FINDINGS: There is a comminuted intertrochanteric fracture of the proximal right femur. The hip joint is intact. The visualized knee joint is intact. No lytic or sclerotic bone lesions are identified. No significant arthritic changes are identified. Bone mineralization is within normal limits. No focal soft tissue abnormalities are identified. IMPRESSION: Comminuted intertrochanteric fracture of the proximal right femur. Electronically signed by: Margarita Trevino DO 11/14/2019 7:13 AM [facility]
--- NOTE | 2019-11-14 07:17 | RAD ---
EXAM: X-ray pelvis 1-2 views CLINICAL DATA: 84-year-old female status post fall with right hip pain TECHNICAL DATA: A single AP x-ray view of the pelvis was performed on 11/14/2019 at 6:53 AM. COMPARISONS: None FINDINGS: There is a comminuted mildly displaced intertrochanteric fracture of the proximal right femur. The hip joints are intact. Sacroiliac joints and pubic symphysis are intact. No pathologic lytic or sclerotic bone lesions are identified. There are no significant arthritic changes. There are remote postsurgical changes of the lower lumbar spine. Bone mineralization is within normal limits.. No focal soft tissue abnormalities are identified. IMPRESSION: Comminuted mildly displaced intertrochanteric fracture of the proximal right femur. Electronically signed by: Margarita Trevino DO 11/14/2019 7:16 AM [facility]
[2019-11-14] MEDS ORDERED: hydrALAZINE HCl 20 MG/ML VIAL IV ONE (07:50)
--- NOTE | 2019-11-14 08:45 | HP ---
SUPERVISING PHYSICIAN: Zeyad Oh MD CHIEF COMPLAINT: Right hip pain. HISTORY OF PRESENT ILLNESS: Ms. Philip is an 84-year-old female patient that fell early this morning while getting up from a chair and landing on her right hip resulting in immediate severe pain. She denied any sensation changes. She was brought to the Emergency Room and evaluated. She was found to have a comminuted intertrochanteric fracture of the proximal right femur. She is now going to be admitted for orthopedic consultation with Dr. Moralez for possible Gamma nailing procedure. She was admitted in stable condition. PAST MEDICAL HISTORY: 1. Seasonal allergies. 2. Osteoarthritis. 3. Osteoporosis. 4. Hypertension. 5. Fibromyalgia. 6. Chronic lumbar disc disease. 7. Lumbar stenosis. 8. Benign familial tremor. PAST SURGICAL HISTORY: 1. Hysterectomy with left oophorectomy. 2. Lumbar fusion in 2014. HOME MEDICATIONS: 1. Atenolol 25 mg daily. 2. Losartan/hydrochlorothiazide 50-12.5 mg daily. 3. Gabapentin t.i.d. 4. Cetirizine 10 mg daily. ALLERGIES: NO KNOWN DRUG ALLERGIES. FAMILY HISTORY: Positive for rheumatoid arthritis and Parkinson's disease. SOCIAL HISTORY: The patient is and lives in [place], [place]. She does have a history of tobacco smoking, but quit in 1983. She denies any illicit drug use or alcohol. REVIEW OF SYSTEMS: CONSTITUTIONAL: Negative for any fevers, chills, rigors, general malaise, weakness or unexplained weight loss. HEENT: Negative for headaches, sore throats, earaches, nasal congestion, vision changes. RESPIRATORY: Negative for coughing or shortness of breath. CARDIOVASCULAR: Negative for chest pain, palpitations, tachycardia or syncopal episodes. GASTROINTESTINAL: Negative for nausea, vomiting, diarrhea, constipation or abdominal pain. GENITOURINARY: Negative for dysuria, hematuria, polyuria. MUSCULOSKELETAL: As noted in history of present illness. SKIN: Denies any unexplained changes, lesions, moles, rashes or sores. NEUROLOGIC: Denies any ataxia, seizures or other neurologic deficits. HEMATOLOGIC: Denies unexplained bleeding, easy bruising or transfusion reactions. PHYSICAL EXAMINATION: VITAL SIGNS: Pulse 76. Blood pressure 213/98. Respirations 16. Saturation 92% on room air. Admission weight 82.5 kg. GENERAL: On admission to the Medical/Surgical Floor, the patient was a little anxious, in mild distress from pain. HEENT: Tympanic membranes clear bilaterally. Oropharynx is pink, moist without any lesions. NECK: Supple, nontender with full range of motion. No jugular venous distention noted. RESPIRATORY: Lungs clear to auscultation bilaterally without any rhonchi, wheezes or rales. CARDIOVASCULAR: Regular rate and rhythm without any appreciable murmurs, gallops, or rubs. ABDOMEN: Soft, nontender. Positive bowel sounds. RECTAL: Deferred. BACK: No CVA or vertebral tenderness. EXTREMITIES: There is no cyanosis, clubbing or edema. Right leg was shortened and laterally rotated. Pulses 2+ bilaterally. Capillary refill brisk. No reported paresthesias. NEUROLOGIC: Cranial nerves II-XII are grossly intact. Facial features are symmetrical. Extraocular movements are within normal limits. There is no nystagmus noted. The patient is alert and oriented times three. SKIN: Warm, pink and dry. LABORATORY: CBC shows white count 6,600, hemoglobin 13.9, hematocrit 41.6, platelet count 200,000. Differential without a left shift. Coagulation studies showed normal PT, PTT. Chemistries showed normal electrolytes, liver functions. Creatinine 1.03. Urinalysis was unremarkable. RADIOLOGY: Chest x-ray pending. Femur and pelvis x-ray in the Emergency Room per radiologic interpretation showed comminuted mildly displaced intertrochanteric fracture of the right proximal femur. Pelvis showed intact sacroiliac joints and pubic symphysis. EKG pending. ASSESSMENT: 1. Status post ground level fall with a right hip fracture with no mention of loss of consciousness. 2. History of hypertension. 3. History of osteoporosis and osteoarthritis. 4. Chronic fibromyalgia. 5. Chronic lumbar disc disease with lumbar stenosis and previous lumbar fusion. 6. Benign familial tremor. PLAN: Ms. Philip is going to be admitted for surgical evaluation with orthopedic services by Dr. Santana Moralez. The plan at this point is to do a Gamma nail. The patient is medically cleared after visiting with her primary care physician and review of charts. We will provide pain management as needed. Preoperative orders per Dr. Moralez. Postoperative management per Dr. Moralez. I did discuss with the family and the patient plans for rehab and they are on board with [facility]. I requested referral with [facility] and Rere is actually here today to do that. We will continue to monitor blood pressure and control as needed. She was given hydralazine and labetalol in the Emergency Room with good results. She will remain NPO and preoperative orders are in place. Until the patient can transition to outpatient management, we will continue to monitor and treat as needed. [facility][id number] [facility]
[2019-11-14] MEDS ORDERED: LABETALOL INJ 5 MG/ML VIAL IV ONE (09:47)
[2019-11-14] MEDS ORDERED: VANCOMYCIN HCL INJ 1,000 MG in SODIUM CHLORIDE 0.9% 250ML 250 ML IVPB ONE (10:42)
[2019-11-14] MEDS ORDERED: ceFAZolin SODIUM 2 GM in SODIUM CHLORIDE 0.9% 100ML 100 ML IVPB ONE (10:42)
[2019-11-14] MEDS ORDERED: LACTATED RINGERS 1,000 ML IVS PRN (10:42)
[2019-11-14] MEDS: IV SET AND CAP CHANGE INJ INJ SCH (11:28)
[2019-11-14] MEDS: HYDROmorphone HCL INJ 2 MG/ML VIAL IV PRN (11:53)
--- NOTE | 2019-11-14 12:03 | RAD ---
EXAM DESCRIPTION: Chest,1 View CLINICAL HISTORY: 84 years Female, pre-op COMPARISON: CT angiogram of the chest dated 09/07/2018. TECHNIQUE: AP radiograph of the chest was obtained. FINDINGS: Trachea is midline.The cardiomediastinal silhouette is mildly enlarged in size. Mild diffuse pulmonary vascular congestion. Left basilar airspace opacities could represent atelectasis and/or pneumonia.No evidence of pleural effusions. IMPRESSION: Mildly enlarged cardiac silhouette and pulmonary vascular congestion. Left basilar airspace opacities could represent atelectasis and/or pneumonia. Electronically signed by: Esther Rosales MD 11/14/2019 12:01 PM [facility]
[2019-11-14] MEDS ORDERED: SODIUM CHLORIDE 0.9% 100ML 100 ML IVPB ONE (12:14)
[2019-11-14] MEDS ORDERED: ceFAZolin SODIUM 1 GM VIAL ONE (12:14)
[2019-11-14] MEDS ORDERED: MIDAZOLAM INJ 2 MG/2 ML VIAL ONE (13:20)
[2019-11-14] MEDS ORDERED: HYDROmorphone HCL INJ 2 MG/ML VIAL ONE (13:20)
[2019-11-14] MEDS ORDERED: SODIUM CHLORIDE 0.9% 250ML 250 ML ONE ×2 (13:26→22:36)
[2019-11-14] MEDS ORDERED: VANCOMYCIN HCL INJ 1,000 MG VIAL IVPB ONE ×2 (13:26→22:36)
[2019-11-14] MEDS ORDERED: LACTATED RINGERS 1,000 ML ONE ×2 (13:32→15:08)
[2019-11-14] MEDS ORDERED: ROCURONIUM BROMIDE 10 MG/ML VIAL ONE (13:55)
[2019-11-14] MEDS: BUPIVACAINE 0.5% 30 ML VIAL INJ ONE ×2 (14:25→14:51)
[2019-11-14] MEDS: BUPIVACAINE LIPOSOME 13.3 MG/ML VIAL INJ ONE ×2 (14:25→14:51)
[2019-11-14] MEDS: ceFAZolin SODIUM 1 GM VIAL ONE ×2 (14:26→14:38)
[2019-11-14] MEDS: VANCOMYCIN HCL INJ 1,000 MG VIAL IVPB ONE ×2 (14:26→14:38)
[2019-11-14] MEDS ORDERED: SUGAMMADEX SODIUM 200 MG/2 ML VIAL IV ONE (14:55)
--- NOTE | 2019-11-14 16:00 | RAD ---
EXAM DESCRIPTION: Pelvis CLINICAL HISTORY: post-op COMPARISON: November 14, 2019. IMPRESSION: Single frontal view the pelvis was acquired. Intramedullary nail of the right femur is noted with transfixing gamma nail for intertrochanteric neck fracture. Alignment appears anatomic. Electronically signed by: Hi Oscar MD 11/14/2019 3:59 PM [facility]
--- NOTE | 2019-11-14 16:04 | RAD ---
XR HIP 2 OR MORE VIEWS HISTORY: 84 years Female post op COMPARISON: Same day right hip radiographs. TECHNIQUE: 2 views of the right hip. IMPRESSION: Interval of ORIF of the intertrochanteric right hip fracture. Hardware appears intact. No new fracture identified. No evidence for dislocation. Postoperative changes in the soft tissues overlying the right hip. Electronically signed by: Carlos Sow MD 11/14/2019 4:03 PM [facility]
--- NOTE | 2019-11-14 16:29 | RAD ---
FL LESS THAN 1 HOUR HISTORY: 84 years Female GAMMA NAIL COMPARISON: None. 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 See procedure notes for further details. Fluoroscopy time: 1 minute, 29 seconds. Fluoroscopic images: 2. Electronically signed by: Carlos Sow MD 11/14/2019 4:27 PM [facility]
[2019-11-14] MEDS: ESCITALOPRAM 10 MG TAB PO SCH (17:50)
[2019-11-14] MEDS: ATENOLOL 25 MG TAB PO SCH (17:50)
[2019-11-14] MEDS ORDERED: ceFAZolin SODIUM 1 GM VIAL IM SCH (20:00)
[2019-11-14] MEDS ORDERED: SODIUM CHLORIDE 0.9% 50ML 50 ML ONE (20:09)
[2019-11-14] MEDS: ceFAZolin SODIUM 1 GM in SODIUM CHL 0.9% 50ML MIN-BAG+ 50 ML IVPB SCH (20:13)
[2019-11-14] MEDS: GABAPENTIN 300 MG CAP PO SCH (20:48)
[2019-11-14] MEDS: ENOXAPARIN SODIUM 30 MG/0.3 ML SYG SUBCU SCH (22:57)
[2019-11-14] MEDS: VANCOMYCIN HCL INJ 1,000 MG in SODIUM CHLORIDE 0.9% 250ML 250 ML IVPB SCH (23:05)
[2019-11-15] MEDS: HYDROmorphone HCL INJ 2 MG/ML VIAL IV PRN ×3 (01:46→12:04)
[2019-11-15] MEDS ORDERED: SODIUM CHLORIDE 0.9% 50ML 50 ML ONE (03:25)
[2019-11-15] MEDS ORDERED: ceFAZolin SODIUM 1 GM VIAL ONE ×3 (03:26→13:22)
[2019-11-15] MEDS: ceFAZolin SODIUM 1 GM in SODIUM CHL 0.9% 50ML MIN-BAG+ 50 ML IVPB SCH ×2 (04:01→15:35)
[2019-11-15] MEDS ORDERED: hydroCHLOROthiazide 12.5 MG CAP ONE (07:27)
[2019-11-15] MEDS ORDERED: LOSARTAN POTASSIUM 25 MG TAB ONE (07:27)
[2019-11-15] MEDS ORDERED: SODIUM CHLORIDE 0.9% 250ML 250 ML ONE ×2 (07:27→15:24)
[2019-11-15] MEDS ORDERED: SODIUM CHL 0.9% 50ML MIN-BAG+ 50 ML IVPB ONE ×2 (07:28→13:21)
[2019-11-15] MEDS ORDERED: VANCOMYCIN HCL INJ 1,000 MG VIAL IVPB ONE (07:28)
[2019-11-15] MEDS: ESCITALOPRAM 10 MG TAB PO SCH (08:23)
[2019-11-15] MEDS: CETIRIZINE HCL 10 MG TAB PO SCH (08:23)
[2019-11-15] MEDS: GABAPENTIN 300 MG CAP PO SCH ×3 (08:23→20:14)
[2019-11-15] MEDS: ATENOLOL 25 MG TAB PO SCH (08:26)
[2019-11-15] MEDS: HYDROcodone 5MG/APAP 325MG 1 EA TAB PO PRN (08:51)
[2019-11-15] MEDS ORDERED: NON-FORMULARY MEDICATION 1 EA MIS (Losartan Potassium & Hydrochlo [Losartan Potassium/Hydr PO SCH (09:00)
[2019-11-15] MEDS: LOSARTAN POTASSIUM 25 MG TAB PO SCH (09:03)
[2019-11-15] MEDS: hydroCHLOROthiazide 12.5 MG CAP PO SCH (09:03)
[2019-11-15] MEDS ORDERED: HYDROcodone 10MG/APAP 325MG 1 EA TAB ONE (11:56)
[2019-11-15] MEDS: HYDROcodone 10MG/APAP 325MG 1 EA TAB PO SCH ×2 (12:00→20:14)
[2019-11-15] MEDS: VANCOMYCIN HCL INJ 1,000 MG in SODIUM CHLORIDE 0.9% 250ML 250 ML IVPB SCH (12:09)
[2019-11-15] MEDS: ENOXAPARIN SODIUM 30 MG/0.3 ML SYG SUBCU SCH ×2 (12:09→22:32)
[2019-11-15] MEDS ORDERED: LEVALBUTEROL NEBS 1.25 MG/3 ML VIAL NEB PRN (12:27)
[2019-11-15] MEDS ORDERED: AZITHROMYCIN IV 500 MG VIAL IVPB ONE (15:25)
[2019-11-15] MEDS: AZITHROMYCIN IV 500 MG in SODIUM CHLORIDE 0.9% 250ML 250 ML IVPB SCH (15:32)
[2019-11-15] MEDS: BIFIDOBACTERIUM INFANTIS 4 MG CAP PO SCH (15:35)
[2019-11-15] MEDS: guaiFENesin ER TAB 600 MG TAB PO SCH ×2 (15:35→20:14)
--- NOTE | 2019-11-15 15:36 | PN ---
DATE: 11/15/2019 SUBJECTIVE: The patient is doing pretty well. She is resting comfortably. OBJECTIVE: She is afebrile. Vital signs are stable. Dressing is clean, dry and intact. ASSESSMENT: Status post gamma nail implant. PLAN: Continued partial weightbearing. [id number] [facility]
[2019-11-15] MEDS: ALPRAZolam 0.25 MG TAB PO PRN (15:40)
--- NOTE | 2019-11-15 15:54 | OP ---
DATE OF PROCEDURE: 11/14/19 PREOPERATIVE DIAGNOSIS: 1. Right intertrochanteric hip fracture. POSTOPERATIVE DIAGNOSIS: 1. Right intertrochanteric hip fracture. PROCEDURE: 1. Gamma nail, right hip. SURGEON: Santana Moralez MD. MANAGER LEASING: Deni Caldwell CST, SA-C. ANESTHESIA: General anesthesia. COMPLICATIONS: None. FINDINGS: Intertrochanteric fracture of the right hip. INDICATION: Ms. Philip has a history of a fall on the day of presentation. She had acute onset of pain and was brought to the Emergency Room where x-rays revealed an intertrochanteric fracture. I was consulted for this and the family and I discussed the proposed treatment. After discussing the risks, benefits and alternatives to operative therapy, informed consent was obtained. PROCEDURE: The patient was brought to the Operating Room and placed in the supine position. General anesthesia was administered and the patient was placed on the fracture table. The fracture was provisionally reduced under fluoroscopic imaging and after reduction, the leg and hemipelvis were sterilely prepped and draped. An incision was made just proximal to the greater trochanter and dissection was carried through the iliotibial band and down to the greater trochanter. A starting pin was placed and a one-step reamer was used to open the femoral canal. A 125 degree angled Gamma nail was inserted into the canal to the appropriate level. A guide pin was placed from the lateral cortex into the femoral head. The appropriate length compression screw was measured and inserted with the placement guided under direct imaging. Following that, the distal locking screw was drilled, measured, and placed under imaging. The proximal locking screw was placed through the outrigger into the top of the nail and the outrigger removed. The final construct was imaged and the wounds were thoroughly irrigated, followed by closure with Monocryl suture. Sterile dressings were placed. The patient was awoken from anesthesia and taken to the Recovery Room. POSTOPERATIVE PLAN: She will be partial weightbearing and will be admitted for physical therapy. #[id number] [facility]
[2019-11-15] MEDS: LEVALBUTEROL NEBS 1.25 MG/3 ML VIAL NEB SCH ×2 (16:24→23:15)
[2019-11-15] MEDS: SODIUM CHLORIDE 0.9% (FLUSH) 10 ML SYG IV PRN (20:15)
[2019-11-15] MEDS ORDERED: HYDROcodone 10MG/APAP 325MG 1 EA TAB PO SCH (21:00)
[2019-11-16] MEDS: HYDROcodone 5MG/APAP 325MG 1 EA TAB PO PRN (04:44)
[2019-11-16] MEDS: HYDROmorphone HCL INJ 2 MG/ML VIAL IV PRN (04:45)
[2019-11-16] MEDS: LEVALBUTEROL NEBS 1.25 MG/3 ML VIAL NEB SCH ×2 (08:29→16:35)
[2019-11-16] MEDS: BIFIDOBACTERIUM INFANTIS 4 MG CAP PO SCH (09:30)
[2019-11-16] MEDS: CETIRIZINE HCL 10 MG TAB PO SCH (09:30)
[2019-11-16] MEDS: HYDROcodone 10MG/APAP 325MG 1 EA TAB PO SCH ×3 (09:30→20:25)
[2019-11-16] MEDS: ESCITALOPRAM 10 MG TAB PO SCH (09:30)
[2019-11-16] MEDS: ASCORBIC ACID 500 MG TAB PO SCH (09:31)
[2019-11-16] MEDS: ATENOLOL 25 MG TAB PO SCH (09:31)
[2019-11-16] MEDS: guaiFENesin ER TAB 600 MG TAB PO SCH ×2 (09:31→20:25)
[2019-11-16] MEDS: GABAPENTIN 300 MG CAP PO SCH ×3 (09:32→20:25)
[2019-11-16] MEDS: hydroCHLOROthiazide 12.5 MG CAP PO SCH (09:32)
[2019-11-16] MEDS: LOSARTAN POTASSIUM 25 MG TAB PO SCH (09:32)
[2019-11-16] MEDS: APOAEQUORIN 10 MG PO SCH (09:40)
--- NOTE | 2019-11-16 10:15 | PN ---
SUPERVISING PHYSICIAN: Zeyad Oh MD DATE: 11/15; SUBJECTIVE: Patient rested last night. She did get a little anxious after postop and required some Ativan this morning. She did move to a chair and her pain was not well controlled at that point she she still was a little anxious but I explained to her that we would get this under control. I did talk with the family after she had a physical therapy evaluation and I think at this point given the patient's age and her ability to function, her choice as per family and patient, it to probably go to [facility] to continue with rehab at this point instead of going to [facility]. Certainly, if she does well at [facility], we can increase her levels where she could function at [facility], she could go from [facility] to [facility]. OBJECTIVE: VITAL SIGNS: She remains afebrile, temperature 98.1. Pulse 70, blood pressure 100/54, respirations 16, oxygen saturation 92% to 94% on room air. I&O: She has a negative balance of 1825. Weight 8.0 kg. GENERAL: The patient appears to be a little bit anxious as she has just recently moved to the chair. She is alert. CHEST: Lung sounds were fairly clear, just diminished toward the bases. . HEART: Regular rate and rhythm. . ABDOMEN: Soft, non-tender, positive bowel sounds. EXTREMITIES: Right hip has a dressing in place which is clean and dry. Pulses distally are strong, capillary refill brisk.. NEUROLOGIC: Alert and oriented x 3. LABORATORY: Postoperative hemoglobin 8.9, hematocrit 27.4. RADIOLOGY: No additional studies today. MICROBIOLOGY: No microbiology specimens. ASSESSMENT: 1. Status post ground level fall with a right hip fracture with no mention of loss of consciousness postoperative day #1. 2. History of hypertension, stable. 3. History of osteoporosis and osteoarthritis. 4. Chronic fibromyalgia. 5. Chronic lumbar disc disease with lumbar stenosis and previous lumbar fusion. 6. Benign familial tremor. PLAN: Will continue to follow patient as she progresses through her physical therapy and rehabilitation efforts. I have encouraged her to do deep breathing exercises and ordered incentive spirometry as well as some breathing treatments to prevent any complications as she has a little bit of cough and seems to be having some atelectasis on assessment. We are working to get her pain better controlled. She is on scheduled [place] at home, we will resume this and try to get her off the Dilaudid. I did again talk with them and at this point, they want to got to [place] and given her assessment today with physical therapy, I think this is the best course of action. We will put a referral in at that point. Until we can transition her to outpatient management, we will continue to monitor and treat as needed #[id number] [facility]
[2019-11-16] MEDS ORDERED: SODIUM CHLORIDE 0.9% 250ML 250 ML ONE (13:10)
[2019-11-16] MEDS ORDERED: AZITHROMYCIN IV 500 MG VIAL IVPB ONE (13:11)
[2019-11-16] MEDS: AZITHROMYCIN IV 500 MG in SODIUM CHLORIDE 0.9% 250ML 250 ML IVPB SCH (13:13)
[2019-11-16] MEDS: ENOXAPARIN SODIUM 30 MG/0.3 ML SYG SUBCU SCH ×2 (13:13→22:51)
--- NOTE | 2019-11-16 18:26 | PN ---
SUPERVISING PHYSICIAN: Zeyad Oh MD DATE: 11/16; SUBJECTIVE: Patient seems to be doing pretty good today. She is sitting in the chair, she just wants to be more comfortable, the pain is better controlled. We discussed removing the catheter and again, rehab potential going to [facility]. She has been afebrile. She no nausea or vomiting, chest pains, she remains comfortable. OBJECTIVE: VITAL SIGNS: Temperature 98.9. Pulse 93, blood pressure 137/69, respirations 18, oxygen saturation 92% on room air. I&O: She has a negative balance of 795. Weight 80.0 kg. GENERAL: The patient is resting comfortably, appears to be in no acute distress. Pain is well-controlled. CHEST: Clear to auscultation. . HEART: Regular rate and rhythm. . ABDOMEN: Soft, non-tender, positive bowel sounds. EXTREMITIES: Right hip has a dressing in place which is clean and dry. No signs of infection. Extremities without edema. . NEUROLOGIC: Alert and oriented x 3. LABORATORY: No additional laboratory studies today. MICROBIOLOGY: No specimens. ASSESSMENT: 1. Status post ground level fall with a right hip fracture with no mention of loss of consciousness postoperative day #2. 2. History of hypertension, stable. 3. History of osteoporosis and osteoarthritis. 4. Chronic fibromyalgia. 5. Chronic lumbar disc disease with lumbar stenosis and previous lumbar fusion. 6. Benign familial tremor. PLAN: Will continue to work with physical therapy, transition her to outpatient management. Again, with the family's wishes and the patient's wishes, they are looking to go to [facility]. Discussed that we will work to remove her continue today and the referral will be put in for [facility]. Will continue to monitor and treat as needed, until we can transition her to outpatient management. #[id number] MTDD
[2019-11-16] MEDS: SODIUM CHLORIDE 0.9% (FLUSH) 10 ML SYG IV PRN (20:26)
[2019-11-16] MEDS ORDERED: MAGNESIUM HYDROXIDE 30 ML UD PO SCH (22:42)
[2019-11-16] MEDS ORDERED: MAGNESIUM HYDROXIDE 30 ML UD PO PRN (22:48)
[2019-11-17] MEDS: LEVALBUTEROL NEBS 1.25 MG/3 ML VIAL NEB SCH ×2 (00:20→08:58)
[2019-11-17] MEDS: ALPRAZolam 0.25 MG TAB PO PRN (03:15)
[2019-11-17] MEDS: HYDROcodone 5MG/APAP 325MG 1 EA TAB PO PRN (03:15)
[2019-11-17] MEDS: hydroCHLOROthiazide 12.5 MG CAP PO SCH (08:02)
[2019-11-17] MEDS: ESCITALOPRAM 10 MG TAB PO SCH (08:02)
[2019-11-17] MEDS: APOAEQUORIN 10 MG PO SCH (08:02)
[2019-11-17] MEDS: LOSARTAN POTASSIUM 25 MG TAB PO SCH (08:03)
[2019-11-17] MEDS: guaiFENesin ER TAB 600 MG TAB PO SCH (08:03)
[2019-11-17] MEDS: HYDROcodone 10MG/APAP 325MG 1 EA TAB PO SCH ×2 (08:03→14:05)
[2019-11-17] MEDS: CETIRIZINE HCL 10 MG TAB PO SCH (08:03)
[2019-11-17] MEDS: ASCORBIC ACID 500 MG TAB PO SCH (08:04)
[2019-11-17] MEDS: ATENOLOL 25 MG TAB PO SCH (08:04)
[2019-11-17] MEDS: GABAPENTIN 300 MG CAP PO SCH (08:04)
[2019-11-17] MEDS: SODIUM CHLORIDE 0.9% (FLUSH) 10 ML SYG IV PRN (08:04)
[2019-11-17] MEDS: BIFIDOBACTERIUM INFANTIS 4 MG CAP PO SCH (08:05)
[2019-11-17] MEDS: IV SET AND CAP CHANGE INJ INJ SCH (09:55)
[2019-11-17] MEDS: ENOXAPARIN SODIUM 30 MG/0.3 ML SYG SUBCU SCH (10:32)
[2019-11-17 10:36] VITALS: TEMP 97.7
[2019-11-17] MEDS ORDERED: AZITHROMYCIN 250 MG TAB PO ONE (11:16)
[2019-11-17] MEDS: AZITHROMYCIN IV 500 MG in SODIUM CHLORIDE 0.9% 250ML 250 ML IVPB SCH (11:29)
[2019-11-17 14:28] VITALS: BP 155/70; O2SAT 96
--- NOTE | 2019-11-21 08:49 | DS ---
SUPERVISING PHYSICIAN: Zeyad Oh MD ADMISSION DIAGNOSES: 1. Status post ground level fall with a right hip fracture with no mention of loss of consciousness. 2. History of hypertension. 3. History of osteoporosis and osteoarthritis. 4. Chronic fibromyalgia. 5. Chronic lumbar disc disease with lumbar stenosis and previous lumbar fusion. 6. Benign familial tremor. DISCHARGE DIAGNOSES: 1. Status post ground level fall with a right hip fracture with no mention of loss of consciousness postoperative day #3. 2. History of hypertension, stable. 3. History of osteoporosis and osteoarthritis. 4. Chronic fibromyalgia. 5. Chronic lumbar disc disease with lumbar stenosis and previous lumbar fusion. 6. Benign familial tremor. REASON FOR HOSPITALIZATION: Ms. Philip is an 84-year-old female patient that fell early this morning while getting up from a chair and landing on her right hip resulting in immediate severe pain. She denied any sensation changes. She was brought to the Emergency Room and evaluated. She was found to have a comminuted intertrochanteric fracture of the proximal right femur. She is now going to be admitted for orthopedic consultation with Dr. Moralez for possible Gamma nailing procedure. She was admitted in stable condition LABORATORY STUDIES: CBC showed to be was negative. Postoperative hemoglobin 8.9, hematocrit 27.4. Coagulation studies showed normal PT/PTT. Preoperative chemistries were well within normal limits. BNP was slightly elevated at 289. Urinalysis showed to be within normal limits. MICROBIOLOGY: No specimens were submitted. RADIOLOGY: She had a pelvis/femur x-ray in the Emergency Room prior to admission and per radiology interpretation, right hip/right femur showed comminuted mildly displaced intertrochanteric fracture of the proximal right femur. She also had postoperative x-rays, please see those results for details as well as chest x-ray prior to surgery and per radiology interpretation showed mildly enlarged cardiac silhouette with pulmonary vasculature congestion. There was note of a left basilar airspace opacity which could represent atelectasis and/or pneumonia. CONSULTATION: Dr. Santana Moralez, orthopedic surgeon. PROCEDURE: Gamma nail procedure. Please see Dr. Moralez's note for details. HOSPITAL COURSE: Ms. Philip was admitted on 11/14/19 for gamma nailing of a right hip fracture. She was taken to surgery on the date of admission. She did well intraoperatively. Postoperatively, she had some issues with anxiety and some pain and was slowly controlled and was having some issues with aggressive rehabilitation. Physical therapy recommended the patient initially would do well at [facility] rather than [facility] due to the fact that she is not able to aggressively pursue a rigid physical therapy rehabilitation program. Recommendations were that she go to [facility] and once stable enough to go from there, she could go to [facility] to continue rehabilitation efforts. It was felt that she was clinically stable enough and discharged to [facility] and continue with physical therapy at 2:00 PM. She was continued on anticoagulation postoperative as well as on discharge. DISCHARGE PHYSICAL EXAMINATION: VITAL SIGNS: She was afebrile up to 97.7, pulse 73, blood pressure 155/70, responsibilities 16, oxygen saturation 96% on room air. GENERAL: Patient was resting comfortably and in good spirits. She was alert and appeared to be in good control of her pain. CHEST: Clear to auscultation. HEART: Regular rate and rhythm. ABDOMEN: Soft, non-tender, positive bowel sound. EXTREMITIES: Dressing was in place and the right hip was clean and dry. Distal pulses were strong, capillary refill was brisk. NEUROLOGIC: She was alert, and oriented x3. PLAN: Cedrick Moraes was discharged on 11/17/19 to [facility] to continue rehabilitation efforts. Activities were physical therapy to evaluate and treat. Wound care was as per Dr. Moralez's instructions on discharge. Nursing care were as per instructions per protocol and Dr. Vo office. Diet: Regular as tolerated with a dietary consultation. Medications were as per her medical administration record. DVT prophylaxis was continued with Xarelto 10 mg daily for 26 days and then discontinue. She was to followup with Dr. Moralez and Dr. Vo. Those office appointments were already made at discharge. She was told to return to the Emergency Department or call Dr. Vo or Dr. Moralez's office for any questions for further evaluation. She does have a followup appointment with Dr. Moralez on 12/04/19 at 9:45 AM and will follow with Dr. Vo thereafter between one and two weeks. MEDICATIONS PRESCRIBED ON DISCHARGE: 1. Magnesium hydroxide 30 mL daily as needed for constipation. 2. Miralax 17 grams daily, #20 with no refills. 3. Xarelto 10 mg daily, #26, no refills. All other medications are as per medical administration record. CONDITION ON DISCHARGE: Stable and improving. DISPOSITION: The patient was discharged to [facility]. #[id number] MTDD
== END 2019-11-17 14:54 | DRG 482 ==
LOC: ER 06:37 → MS 08:43 → OBSVTOIN 08:43
PROVIDERS: ADMIT Nurse Practitioner Family; ATTEND Nurse Practitioner Family
PROC: 0QH634Z Insertion of Internal Fixation Device into Right Upper Femur, Percutaneous Approach (ICD-10-PCS; principal; 2019-11-14 13:29)
DX: S72.141A Displaced intertrochanteric fracture of right femur, initial encounter for closed fracture (principal); W01.0XXA Fall on same level from slipping, tripping and stumbling without subsequent striking against object, initial encounter; Y92.9 Unspecified place or not applicable; J30.2 Other seasonal allergic rhinitis; M19.90 Unspecified osteoarthritis, unspecified site; M81.0 Age-related osteoporosis without current pathological fracture; I10 Essential (primary) hypertension; M79.7 Fibromyalgia; M51.36 Other intervertebral disc degeneration, lumbar region; M48.061 Spinal stenosis, lumbar region without neurogenic claudication; G25.0 Essential tremor; Z98.1 Arthrodesis status; Z79.899 Other long term (current) drug therapy; Z87.891 Personal history of nicotine dependence; F41.9 Anxiety disorder, unspecified; Z79.82 Long term (current) use of aspirin; Z79.891 Long term (current) use of opiate analgesic

== ENCOUNTER → 2019-11-27 | Outpatient (CLI) | payer MEDICARE, OTHER | LOC: GOCC 08:26 | PROVIDERS: ATTEND Family Medicine | DX: R19.7 Diarrhea, unspecified (principal) ==

== ENCOUNTER → 2019-12-04 | Outpatient (CLI) | payer MEDICARE, OTHER ==
--- NOTE | 2019-12-04 13:49 | RAD ---
EXAM DESCRIPTION: Hip,Right 2 Views CLINICAL HISTORY: HIP PAIN COMPARISON: November 14, 2019 TECHNIQUE: AP/frog leg lateral FINDINGS: Two radiographic views right hip demonstrate internal fixation of intertrochanteric fracture with short intramedullary buck and interlocking threaded pin into the femoral head. Alignment is essentially anatomic. Bony union is not evident. New fracture is not evident. Early minimal callus formation medially is suggested. IMPRESSION: Internally fixed right intertrochanteric hip fracture in essentially anatomic alignment. Electronically signed by: Zeyad Simmons MD 12/04/2019 1:48 PM [facility]
== END ==
LOC: RAD 09:44
PROVIDERS: ATTEND Orthopaedic Surgery
DX: S72.141S Displaced intertrochanteric fracture of right femur, sequela (principal); Z98.890 Other specified postprocedural states

== ENCOUNTER → 2020-01-02 | Outpatient (CLI) | payer MEDICARE, OTHER ==
--- NOTE | 2020-01-02 09:32 | RAD ---
EXAM DESCRIPTION: Hip,Right 2 Views: CR/DR/XR CLINICAL HISTORY: 84 years Female intertrochanteric fx RT COMPARISON: 2 views right hip December 04. TECHNIQUE: Two Views. AP neutral AP ABDuction. FINDINGS: Again noted is intramedullary nail proximal right femur with distal fixation screw and a Zickel-type Nail in the right femoral head and neck. Customary position and near-anatomic alignment with bone density around the hardware unremarkable. Intertrochanteric fracture line is less evident with minimal sclerosis. No hip dislocation. Adjacent osseous structures are unremarkable. Bone densities abutting the lesser trochanter are stable. IMPRESSION: Stable ORIF right intratrochanteric hip fracture. No bony complications. Electronically signed by: Deni Elliott MD 01/02/2020 9:30 AM CDT
== END ==
LOC: RAD 08:22
PROVIDERS: ATTEND Orthopaedic Surgery
DX: S72.141D Displaced intertrochanteric fracture of right femur, subsequent encounter for closed fracture with routine healing (principal); Z98.890 Other specified postprocedural states

== ENCOUNTER → 2020-01-23 | Outpatient (CLI) | payer MEDICARE, OTHER | LOC: BFHH 08:46 | PROVIDERS: ATTEND Family Medicine | DX: I11.0 Hypertensive heart disease with heart failure (principal); I50.32 Chronic diastolic (congestive) heart failure; M79.7 Fibromyalgia ==

== ENCOUNTER 2020-02-05 14:15 | Emergency (ER) | payer MEDICARE, OTHER ==
[2020-02-05] MEDS ORDERED: SODIUM CHLORIDE 0.9% (FLUSH) 10 ML SYG IV PRN (14:54)
--- NOTE | 2020-02-05 14:58 | ED.PDOC ---
History of Present Illness - General Chief Complaint: Neuro Symptoms/Deficits Stated Complaint: stroke like symptoms/ams Time Seen by Provider: 02/05/20 14:53 Source: patient, family Exam Limitations: no limitations Additional Information: 84yo F with reported transient episode of speech difficulty. Per family, reported that patient was eating lunch and had difficulty finding words. Lasted for approximately 10-15mins, with complete resolution of symptoms. Patient denied any chest pain, SOB, syncope, headache, palpitations, or other symptoms at that time. Denies any complaints or symptoms at initial evaluation, and family reports patient is back to baseline. - History of Present Illness Timing/Duration: 1-3 hours Severity: moderate Improving Factors: nothing Worsening Factors: nothing Allergies/Adverse Reactions: Allergies NO KNOWN ALLERGY Allergy (Verified 02/05/20 14:35) Home Medications: Ambulatory Orders Atenolol 25 mg PO DAILY #0 06/26/13 Gabapentin 300 mg PO TID 09/22/16 Losartan Potassium & Hydrochlo [Losartan Potassium/Hydroc 50-12.5 mg] 25 mg PO DAILY 09/07/18 Cetirizine HCl [Zyrtec] 10 mg PO DAILY 11/14/19 Escitalopram [Lexapro] 10 mg PO DAILY 11/14/19 Apoaequorin [Prevagen] 10 mg PO DAILY 11/15/19 Ascorbic Acid [Vitamin C 500 mg] 1 tab PO DAILY 11/15/19 Bifidobacterium Infantis [Align] 4 mg PO DAILY 11/15/19 Guaifenesin [Mucinex] 600 mg PO BID PRN 11/15/19 HYDROcodone 10MG/APAP 325MG [Amasa 10/325] 10 mg PO TID 11/15/19 Pumpkin Seed-Soy Germ [Azo Bladder Control/Go-Le] 1 cap PO DAILY 11/15/19 Magnesium Hydroxide [Milk Of Magnesia] 30 ml PO DAILY PRN ud 11/17/19 Polyethylene Glycol 3350 [Miralax] 17 gm PO DAILY 20 Days #20 pckt 11/17/19 Rivaroxaban [Xarelto] 10 mg PO DAILY 26 Days #26 tab 11/17/19 Aspirin [Aspirin Adult Low Dose] 81 mg PO DAILY #14 tab 02/05/20 Review of Systems - Review of Systems Constitutional: States: no symptoms reported EENTM: States: no symptoms reported Respiratory: States: no symptoms reported Cardiology: States: no symptoms reported Gastrointestinal/Abdominal: States: no symptoms reported Skin: States: no symptoms reported Neurological: States: other - difficulty with speech and word finding All other Systems: Reviewed and Negative Past Medical History (General) - Patient Medical History Hx Seizures: No Hx Stroke: No Hx Dementia: No Hx Asthma: No Hx of COPD: No Hx Cardiac Disorders: Yes Hx Congestive Heart Failure: No Hx Pacemaker: No Hx Hypertension: Yes Hx Thyroid Disease: No Hx Diabetes: No Hx Gastroesophageal Reflux: No Hx Renal Disease: No Hx Cancer: No Hx of HIV: No Hx Hepatitis C: No Hx MRSA: No Surgical History: other - Vaccination History Hx Tetanus, Diphtheria Vaccination: No Hx Influenza Vaccination: Yes Hx Pneumococcal Vaccination: No - Social History Hx Tobacco Use: Yes Hx Chewing Tobacco Use: No Hx Alcohol Use: No Hx Substance Use: No Hx Depression: No Hx Physical Abuse: No Hx Emotional Abuse: No Hx Suspected Abuse: No - Female History Patient is a Female of Child Bearing Age (10 -59 yrs old): No Family Medical History - Family History Mother Living Status: Hx Family;Other: dad-alcoholism Physical Exam - Physical Exam General Appearance: Alert, Comfortable, No apparent distress, Well Developed, Well Nourished Eye Exam: bilateral normal Neck: non-tender, full range of motion, supple Respiratory: chest non-tender, lungs clear, normal breath sounds, no respiratory distress Cardiovascular/Chest: normal peripheral pulses, regular rate, rhythm, no murmur Peripheral Pulses: radial,right: 2+, radial,left: 2+ Gastrointestinal/Abdominal: normal bowel sounds, non tender, soft Back Exam: normal inspection, no CVA tenderness, no vertebral tenderness Extremities Exam: non-tender, normal range of motion, no evidence of injury, no edema, deformity Mental Status: alert, 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 No prior history per patient. Did have fall two days ago with unknown head injury but no reported headache, pain, confusion, vomiting, numbness/tingling, or other symptoms since that time until today. Not a thrombolysis candidate due to complete resolution of symptoms.Discussed indications and recommendation for CT scan (unfortunately, [facility] hospital CT scanner is not functioning today), and patient refused transfer/CT and preferred to stay at [facility] at this time. I again discussed benefits/alternatives/risks (including missed diagnosis, worsening of condition, ) with patient and family, and they preferred to defer CT and stay at [facility]. Low suspicion for sepsis, aortic pathology, ACS, acute blood loss anemia at this time. 02/05/20 15:[address] Vo regarding patient presentation and inability to obtain CT, along with patient's refusal for transfer/imaging. Reported that would expedite follow-up tomorrow if patient still desired no transfer and/or admission. Reportedly, currently not on anticoagulation. 02/05/20 16:27 Dr. Vo arranged follow-up at 1045am tomorrow for patient. I discussed their ABCD2 score 3-4 with them, risks/benefits/alternatives of admission, and they refused admission and further imaging and preferred discharge with early follow- up as already arranged. Discussed aspirin therapy and need to return immediately for new/worsening symptoms. They voiced understanding and agreement and again voiced desire for discharge. ED warnings given. This patient was seen during the Coronavirus pandemic. Angel Moody MD #[id number] Departure - Departure Clinical Impression: TIA (transient ischemic attack), Hypertension Disposition: Discharge to Home or Self Care Condition: Fair Departure Forms: ED Discharge - Pt. Copy, Patient Portal Self Enrollment Instructions: DI for Altered Mental Status, Transient Ischemic Attack Diet: low fat, low cholesterol Activity: ambulate only with walker Referrals: Scott Vo MD [Primary Care Provider] - 02/06/20 Prescriptions: Aspirin [Aspirin Adult Low Dose] 81 mg PO DAILY #14 tab Home Medications: Ambulatory Orders Atenolol 25 mg PO DAILY #0 06/26/13 Gabapentin 300 mg PO TID 09/22/16 Losartan Potassium & Hydrochlo [Losartan Potassium/Hydroc 50-12.5 mg] 25 mg PO DAILY 09/07/18 Cetirizine HCl [Zyrtec] 10 mg PO DAILY 11/14/19 Escitalopram [Lexapro] 10 mg PO DAILY 11/14/19 Apoaequorin [Prevagen] 10 mg PO DAILY 11/15/19 Ascorbic Acid [Vitamin C 500 mg] 1 tab PO DAILY 11/15/19 Bifidobacterium Infantis [Align] 4 mg PO DAILY 11/15/19 Guaifenesin [Mucinex] 600 mg PO BID PRN 11/15/19 HYDROcodone 10MG/APAP 325MG [Amasa 10325] 10 mg PO TID 11/15/19 Pumpkin Seed-Soy Germ [Azo Bladder Control/Go-Le] 1 cap PO DAILY 11/15/19 Magnesium Hydroxide [Milk Of Magnesia] 30 ml PO DAILY PRN ud 11/17/19 Polyethylene Glycol 3350 [Miralax] 17 gm PO DAILY 20 Days #20 pckt 11/17/19 Rivaroxaban [Xarelto] 10 mg PO DAILY 26 Days #26 tab 11/17/19 Aspirin [Aspirin Adult Low Dose] 81 mg PO DAILY #14 tab 02/05/20
--- NOTE | 2020-02-05 15:20 | RAD ---
EXAM DESCRIPTION: Chest,1 View CLINICAL HISTORY: TIA COMPARISON: Chest radiograph dated November 14, 2019 TECHNIQUE: One view radiograph of the chest FINDINGS: Cardiac silhouette shows borderline cardiomegaly. Pulmonary vascularity is within normal limits. Lung volumes are shallow with associated bronchovascular crowding. Subtle linear opacities in the retrocardiac regions/lung bases most compatible with atelectasis. Underlying infiltrate cannot be entirely excluded, although felt much less likely. Right hemidiaphragm is mildly elevated compared to left. Bilateral costophrenic angles are sharp. No pneumothorax. No acute osseous abnormality. IMPRESSION: 1. Borderline cardiomegaly without congestive heart failure. 2. Shallow lung volumes with associated bronchovascular crowding. 3. Subtle linear opacities in the retrocardiac regions/lung bases most compatible with atelectasis. Underlying infiltrate cannot be entirely excluded, although felt much less likely. Electronically signed by: Judah Odonnell MD 02/05/2020 3:18 PM CDT
[2020-02-05] MEDS ORDERED: ASPIRIN TABLET 325 MG TAB PO ONE (16:34)
[2020-02-05 17:26] VITALS: BP 178/84; TEMP 97.4; O2SAT 96
== END 2020-02-05 16:55 | disposition home or self-care (01) ==
LOC: ER 14:15
DX: G45.9 Transient cerebral ischemic attack, unspecified (principal); I10 Essential (primary) hypertension; Z87.891 Personal history of nicotine dependence

== ENCOUNTER → 2020-02-09 | Outpatient (CLI) | payer MEDICARE, OTHER ==
--- NOTE | 2020-02-09 09:59 | CT ---
EXAM DESCRIPTION: Head CLINICAL HISTORY: 84 years Female, TIA COMPARISON: CT head 09/07/2018. TECHNIQUE: Axial images obtained from the skull base to the vertex without intravenous contrast with images. Coronal and sagittal reformations provided. This exam was performed according to our departmental dose-optimization program, which includes automated exposure control, adjustment of the mA and/or kV according to patient size and/or use of iterative reconstruction technique. Time Last Seen Well (If known) for Code Stroke: n/a FINDINGS: Brain Parenchyma, ventricles, meninges, and extra-axial spaces: Mild generalized cerebral volume loss. Mild Nonspecific white matter hypodensities in the cerebral hemispheres likely related to ischemic small vessel disease. Possible difficulty differentiating a small acute infarction given these hypodensities. No acute intracranial hemorrhage. No abnormal extra-axial fluid collection. Vascular: Normal. Calvarium, paranasal sinuses, mastoids, and orbits: Calvarium intact. Visualized paranasal sinuses and mastoid air cells clear. Orbits unremarkable. IMPRESSION: 1. No acute intracranial abnormality. Of note, CT is relatively insensitive when compared to MRI for evaluation of acute ischemic infarction. If there remains clinical concern, MRI of the brain is recommended. 2. Senescent changes. Electronically signed by: Dk Carcamo MD 02/09/2020 9:57 AM CDT
== END ==
LOC: CT 09:14
PROVIDERS: ATTEND Family Medicine
DX: Z86.73 Personal history of transient ischemic attack (TIA), and cerebral infarction without residual deficits (principal); G31.1 Senile degeneration of brain, not elsewhere classified

== ENCOUNTER → 2020-02-13 | Outpatient (CLI) | payer MEDICARE, OTHER ==
--- NOTE | 2020-02-13 08:54 | RAD ---
EXAM DESCRIPTION: Hip,Right 2 Views CLINICAL HISTORY: 84 years Female, INTERTROCHANTERIC FRACTURE RIGHT HIP COMPARISON: January 02, 2020 FINDINGS: Again seen are postoperative changes in the right hip without apparent hardware complication, unchanged from January 02, 2020. Old partially united intertrochanteric right femoral fracture with no significant interval change in degree of union from December 20162019. No new fracture or malalignment. The soft tissues are unremarkable. IMPRESSION: Uncomplicated postoperative changes in the right hip with an old partially united intertrochanteric right femoral fracture, all stable from January 02, 2020. Electronically signed by: Nico Singh MD 02/13/2020 8:53 AM CDT
== END ==
LOC: RAD 08:23
PROVIDERS: ATTEND Orthopaedic Surgery
DX: S72.141D Displaced intertrochanteric fracture of right femur, subsequent encounter for closed fracture with routine healing (principal); Z98.890 Other specified postprocedural states

== ENCOUNTER → 2020-02-19 | Outpatient (CLI) | payer MEDICARE, OTHER ==
--- NOTE | 2020-02-19 16:20 | US ---
EXAM DESCRIPTION: Carotid Duplex: ULTRASOUND. CLINICAL HISTORY: 84 years Female TRANSIENT CEREBRAL ISCHEMIC ATTACK COMPARISON: None. TECHNIQUE: Transcutaneous scanning utilizing huynh-scale and Doppler modes to evaluate the bilateral carotid systems and vertebral arteries. Percentage of diameter of stenosis or no stenosis recorded will be based upon NASCET criteria. FINDINGS: Peak systolic/end diastolic (CM-Sec) CCA Right 69/0 Left 66/9. ICA Right proximal 38/7, distal 53/8. Left proximal 44/9, Distal 53/10. Vertebral Right 40/5 Left 49/10. ECA (PS Only) Right 53 left 44. ICA/CCA peak systolic ratio: Right 0.8 Left 0.8 ICA/CCA end diastolic ratio: Right n/a Left 1.0 Vertebral arteries: antegrade flow. Comments Comments: Minimal atherosclerosis in the bilateral common carotid bifurcations. IMPRESSION: 1. Doppler evaluation of the bilateral carotid systems and vertebral arteries shows no hemodynamically significant stenoses. 2. No significant amount of plaque in the carotid arteries bilaterally. Bilateral vertebral arteries showed antegrade-cephalad flow. Electronically signed by: Deni Elliott MD 02/19/2020 4:18 PM CDT
== END ==
LOC: US 08:19
PROVIDERS: ATTEND Family Medicine
DX: G45.9 Transient cerebral ischemic attack, unspecified (principal)

== ENCOUNTER → 2020-02-20 | Outpatient (CLI) | payer MEDICARE, OTHER ==
--- NOTE | 2020-02-20 10:09 | CT ---
EXAM DESCRIPTION: CTA Head CLINICAL HISTORY: 84 years Female, NONTRAUMATIC SUBARACHNOID HEMORAGE COMPARISON: CT head dated 02/09/2020. TECHNIQUE: Precontrast CT of the head was performed. Later intravenous contrast was administered and CT angiogram of the head was performed in arterial phase. Sagittal, coronal and MIP reconstructions were reviewed. This exam was performed according to our departmental dose-optimization program, which includes automated exposure control, adjustment of the mA and/or kV according to patient size and/or use of iterative reconstruction technique. FINDINGS: Again identified is focal hyperdensity in the left temporal lobe, measuring approximately 1.6 cm. This has increased in size compared to prior examination. Previously identified subarachnoid hemorrhage in the left frontal lobe is not well seen on this study. Mild periventricular white matter ischemia and mild diffuse cortical volume loss is noted. The cisterns and ventricles appear normal. The structures of the posterior fossa are intact. Angiographic evaluation: Mild atherosclerotic disease is noted in the cavernous portions of the bilateral carotid arteries with no significant stenosis or occlusion. Bilateral middle cerebral arteries demonstrate good contrast opacification. A1 portion of the right anterior cerebral artery is not visualized and could be a normal variant. Reconstitution of the A2 portion of the right anterior cerebral artery is noted via the anterior communicating artery. Left anterior cerebral artery appears normal. Codominant vertebral arteries are identified. The basilar artery and right posterior cerebral artery appear normal. origin of the left posterior cerebral artery is noted. IMPRESSION: 1. Increase in size of the focal hyperdensity in the left temporal lobe compared to prior examination. It measures 1.5 cm compared to 6 mm on prior study. However the left frontal subarachnoid hemorrhage is not well-visualized. 2. No evidence of aneurysm of the [place]. A1 portion of the right anterior cerebral artery is not visualized, however there is normal reconstitution of the A2 portion via the anterior communicating artery. 3. origin of the left posterior cerebral artery. Electronically signed by: Esther Rosales MD 02/20/2020 10:08 AM CDT
== END ==
LOC: CT 08:31
PROVIDERS: ATTEND Family Medicine
DX: I60.9 Nontraumatic subarachnoid hemorrhage, unspecified (principal); G93.9 Disorder of brain, unspecified

== ENCOUNTER → 2020-03-15 | Outpatient (CLI) | payer MEDICARE, OTHER ==
--- NOTE | 2020-03-15 09:02 | RAD ---
EXAM DESCRIPTION: Hip,Right 2 Views CLINICAL HISTORY: FX COMPARISON: 13 Feb 2020 TECHNIQUE: 2 views right FINDINGS: A gamma nail is seen in the right hip bridging an intertrochanteric fracture of the hip. No evidence of loosening or infection is seen. No new fracturing is detected. Pedicle screw fusion of the lower lumbar spine is seen. There is some callus formation is observed at the fracture site. IMPRESSION: ORIF right intratrochanteric hip fracture. Interval healing is observed. Electronically signed by: Judah Maya MD 03/15/2020 9:01 AM CDT
== END ==
LOC: RAD 07:59
PROVIDERS: ATTEND Orthopaedic Surgery
DX: S72.141D Displaced intertrochanteric fracture of right femur, subsequent encounter for closed fracture with routine healing (principal)

== ENCOUNTER → 2020-04-26 | Outpatient (CLI) | payer MEDICARE, OTHER ==
--- NOTE | 2020-04-26 10:39 | RAD ---
EXAM DESCRIPTION: Right hip, 2 views CLINICAL HISTORY: INTERTROCHANTERIC FRACTURE RIGHT FINDINGS/ IMPRESSION: Comparison 03/15/2020 Intramedullary nail and dynamic hip screw fixation for intertrochanteric fracture of the right proximal femur. Slightly greater sclerosis consistent with healing along the fracture line. The fracture line is still clearly delineated best on the oblique radiograph Normal femoral head mineralization and contour No fracture of the pelvis. Osteoarthritis sacroiliac joints Electronically signed by: Zeyad Madrid MD 04/26/2020 10:37 AM CDT
== END ==
LOC: RAD 09:43
PROVIDERS: ATTEND Orthopaedic Surgery
DX: S72.141D Displaced intertrochanteric fracture of right femur, subsequent encounter for closed fracture with routine healing (principal); M47.898 Other spondylosis, sacral and sacrococcygeal region; Z98.890 Other specified postprocedural states

== ENCOUNTER → 2020-05-31 | Outpatient (CLI) | payer MEDICARE, OTHER ==
--- NOTE | 2020-05-31 16:53 | RAD ---
XR HIP 2 OR MORE VIEWS HISTORY: 85 years Female INTERTROCHANTERIC FX RIGHT COMPARISON: April 26, 2020. TECHNIQUE: 2 views of the right hip. IMPRESSION: ORIF changes of the right hip again demonstrated. No radiographic evidence of hardware failure or loosening. Fracture remains visible but appears less conspicuous relative to the prior comparison study suggesting interval healing. 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 No diagnostic soft tissue abnormality observed. Electronically signed by: Carlos Sow MD 05/31/2020 4:52 PM CDT
== END | disposition home or self-care (01) ==
LOC: RAD 09:50
PROVIDERS: ATTEND Orthopaedic Surgery
DX: S72.141D Displaced intertrochanteric fracture of right femur, subsequent encounter for closed fracture with routine healing (principal)

== ENCOUNTER → 2020-07-16 | Outpatient (CLI) | payer MEDICARE, OTHER ==
--- NOTE | 2020-07-19 11:05 | MAM ---
EXAM DESCRIPTION: 3D Screening BILATERAL : Digital Mammography. CLINICAL HISTORY: 85 years Female ANNUAL SCREENING . No complaints. No family history breast cancer. Menarche age 12. Childbirth age 20. Menopause age unknown. No HRT. Lifetime risk of developing breast cancer (Tyrer-Cuzick model)(%): 1.1. COMPARISON: Bilateral screening digital breast tomosynthesis May 2019. Diagnostic digital breast tomosynthesis and ultrasound right breast July 2019.. TECHNIQUE: Bilateral CC and MLO projection full-field images, digital tomosynthesis mammographic technique. Bilateral digital 2-D full-field MLO images. CAD available for 2-D images. FINDINGS: The breast parenchymal density pattern is: Scattered areas of fibroglandular density. No skin thickening or nipple retraction. Solitary microcalcifications. Axillary nodes. No new focal, stellate mass or density, focal asymmetry , and no suspicious microcalcifications bilaterally. Stable mammograms compared to prior study. IMPRESSION: Benign exam. BIRAD CATEGORY: 2 BENIGN FINDINGS. RECOMMENDATIONS: FOLLOW UP: Routine digital bilateral mammographic screening, one year interval from July 2020. Written communication explaining the IMPRESSION and follow-up, will be mailed to the patient and referring health care provider. According to the [employer], yearly mammograms are recommended starting at age 40 and continuing as long as a woman is in good health. Any breast change noted on a breast self-exam should be reported promptly to the patient's healthcare provider. Breast MRI is recommended for women with an approximately 20-25% or greater lifetime risk of breast cancer, including women with a strong family history of breast or ovarian cancer and women who have been treated for Hodgkin's disease. A negative mammographic report should not delay tissue diagnosis in patients with significant clinical history or physical findings. Extremely dense breast tissue limits the sensitivity of digital mammography. Electronically signed by: Deni Elliott MD 07/19/2020 11:03 AM CDT
== END ==
LOC: MAMMO 08:47
PROVIDERS: ATTEND Family Medicine
DX: Z12.31 Encounter for screening mammogram for malignant neoplasm of breast (principal)

== ENCOUNTER → 2020-09-23 | Outpatient (CLI) | payer MEDICARE, OTHER | LOC: GMAJ 12:14 | PROVIDERS: ATTEND Family Medicine | DX: B34.2 Coronavirus infection, unspecified (principal); R71.8 Other abnormality of red blood cells; R09.02 Hypoxemia ==

== ENCOUNTER 2020-09-27 08:31 | Outpatient (CLI) | payer MEDICARE, OTHER | END 2020-09-27 11:08 | disposition home or self-care (01) | LOC: INFRM 08:31 | PROVIDERS: ATTEND Family Medicine | DX: U07.1 COVID-19 (principal); Z23 Encounter for immunization ==

== ENCOUNTER 2020-09-28 03:11 | Emergency (ER) | payer MEDICARE, OTHER ==
[2020-09-28] MEDS ORDERED: SODIUM CHLORIDE 0.9% 500ML 500 ML IVS ONE (03:33)
[2020-09-28] MEDS ORDERED: ONDANSETRON INJ 4 MG/2 ML VIAL IV ONE (03:33)
--- NOTE | 2020-09-28 03:40 | ED.PDOC ---
History of Present Illness - General Chief Complaint: GI Problem Stated Complaint: n/v/d, anxiety, COVID+ Time Seen by Provider: 09/28/20 03:32 Source: patient, family - grandson, Toni Philip, EMS - History of Present Illness Initial Comments: 85-year-old female with past medical history of hypertension, anxiety disorder, history of stroke who is brought in by EMS from home for chief complaint of vomi ting and diarrhea. Patient is very poor historian and is severely anxious upon arrival. Little meaningful history is able to be gathered from her. She states she feels severely anxious due to COVID-19 infection. She also reports symptoms of dyspnea, nausea, vomiting, diarrhea this evening. Patient's grandson is present in the waiting room upon patient arrival. He states that patient tested positive for COVID-19 5 days ago in the clinic after COVID-19 exposure from her . Her initial symptoms began 6 days ago with only a mild sore throat. Grandson reports she has had a pretty mild course altogether. Her PCP Dr. Vo prescribed her IV BAM treatment which she received yesterday afternoon without issue. Yesterday morning she began having severe anxiety and EMS was called out for evaluation, but patient was not transported to the ED at that time as she declined. Patient reportedly had new onset of nausea with several episodes of nonbloody nonbilious emesis as well as a few episodes of watery diarrhea just prior to ED arrival this morning. EMS reported that she was stable in route, no medications given. Allergies/Adverse Reactions: Allergies NO KNOWN ALLERGY Allergy (Verified 02/05/20 14:35) Home Medications: Ambulatory Orders Atenolol 25 mg PO DAILY #0 06/26/13 Gabapentin 300 mg PO TID 09/22/16 Losartan Potassium & Hydrochlo [Losartan Potassium/Hydroc 50-12.5 mg] 25 mg PO DAILY 09/07/18 Cetirizine HCl [Zyrtec] 10 mg PO DAILY 11/14/19 Escitalopram [Lexapro] 10 mg PO DAILY 11/14/19 Apoaequorin [Prevagen] 10 mg PO DAILY 11/15/19 Ascorbic Acid [Vitamin C 500 mg] 1 tab PO DAILY 11/15/19 Bifidobacterium Infantis [Align] 4 mg PO DAILY 11/15/19 Guaifenesin [Mucinex] 600 mg PO BID PRN 11/15/19 HYDROcodone 10MG/APAP 325MG [[place] 10/325] 10 mg PO TID 11/15/19 Pumpkin Seed-Soy Germ [Azo Bladder Control/Go-Le] 1 cap PO DAILY 11/15/19 Magnesium Hydroxide [Milk Of Magnesia] 30 ml PO DAILY PRN ud 11/17/19 Polyethylene Glycol 3350 [Miralax] 17 gm PO DAILY 20 Days #20 pckt 11/17/19 Rivaroxaban [Xarelto] 10 mg PO DAILY 26 Days #26 tab 11/17/19 Aspirin [Aspirin Adult Low Dose] 81 mg PO DAILY #14 tab 02/05/20 Review of Systems - Review of Systems Review of Systems: 09/28/20 03:42 as per HPI All other Systems: Reviewed and Negative Past Medical History (General) - Patient Medical History Hx Seizures: No Hx Stroke: No Hx Dementia: No Hx Asthma: No Hx of COPD: No Hx Cardiac Disorders: Yes Hx Congestive Heart Failure: No Hx Pacemaker: No Hx Hypertension: Yes Hx Thyroid Disease: No Hx Diabetes: No Hx Gastroesophageal Reflux: No Hx Renal Disease: No Hx Cancer: No Hx of HIV: No Hx Hepatitis C: No Hx MRSA: No - Vaccination History Hx Tetanus, Diphtheria Vaccination: No Hx Influenza Vaccination: Yes Hx Pneumococcal Vaccination: No - Social History Hx Tobacco Use: Yes Hx Chewing Tobacco Use: No Hx Alcohol Use: No Hx Substance Use: No Hx Depression: No Hx Physical Abuse: No Hx Emotional Abuse: No Hx Suspected Abuse: No Family Medical History - Family History Mother Living Status: Hx Family;Other: dad-alcoholism Physical Exam - Physical Exam General Appearance: Alert, Anxious, No apparent distress, Restless Eye Exam: bilateral normal Ears, Nose, Throat: hearing grossly normal, normal ENT inspection, normal pharynx Neck: non-tender, full range of motion, supple, normal inspection Respiratory: no respiratory distress, no accessory muscle use, rales - Left basilar > Right basilar w/o rhonchi or wheezing Cardiovascular/Chest: normal peripheral pulses, regular rate, rhythm, no edema, no gallop, no JVD, no murmur Peripheral Pulses: radial,right: 2+, radial,left: 2+ Gastrointestinal/Abdominal: non tender, soft, no organomegaly, abnormal bowel sounds - diminished, distended Back Exam: normal inspection, no CVA tenderness Extremity: normal range of motion, non-tender, normal inspection, no pedal edema, no calf tenderness, normal capillary refill 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 Consider also iatrogenic from IV treatment yesterday. Consider also gastroenteritis, dehydration, electrolyte derangement, panic attack, gastroparesis, SBO, constipation, other -pt stable on ED arrival but in severe anxiety/near panic state - suspect anxiety largely contributing to acute presentation -obtain full COVID-19 ED panel, CXR, KUB -place PIV, 500 mL NS bolus, Zofran 4 mg IV 09/28/20 05:14 -Patient was given 0.25 mg Xanax in the ED for anxiety with marked improvement. She has been sleeping comfortably without any further anxiety. She has also had no further episodes of nausea, vomiting, or diarrhea. Her ED work-up has been largely reassuring. Lab work reveals slightly elevated inflammatory markers and D-dimer level due to COVID-19 infection. Serum potassium level decreased to 2.7, likely secondary to GI losses. Oral potassium replenishment given in the ED. UA is unremarkable. -Discussed all findings with the patient and with her grandson. As she has remained stable in the ED with good oxygen saturation on room air and only minimally elevated inflammatory markers, will continue trial of outpatient management at this time. Discharged home with grandson in good condition, return warnings discussed at length. We will send home with to go prescription of Zofran as needed Ashu Montgomery MD Billing #[id number] 09/28/20 03:32 IV Care:Saline Lock per Protoc STAT Isolation:Airborne ONCE Telemetry STAT 09/28/20 03:33 Oxygen Delivery Assessment: QSHIFT 09/28/20 03:45 EKG STAT Oxygen STAT Pulse Ox, Continuous Monitoring STAT 09/29/20 03:45 Oxygen STAT Pulse Ox, Continuous Monitoring STAT 09/30/20 03:45 Pulse Ox, Continuous Monitoring STAT Laboratory Results - last 24 hr 09/28/20 09/28/20 09/28/20 03:41 03:41 03:41 WBC 5.4 RBC 4.55 Hgb 13.9 Hct 39.4 MCV 86.7 MCH 30.6 MCHC 35.3 RDW 13.5 Plt Count 162 MPV 10.0 Absolute Neuts (auto) 3.70 Absolute Lymphs (auto) 1.10 Absolute Monos (auto) 0.50 Absolute Eos (auto) 0.00 Absolute Basos (auto) 0.00 Neutrophils % 69.2 Lymphocytes % 20.8 Monocytes % 9.3 H Eosinophils % 0.2 L Basophils % 0.5 PTT (SP) 27.9 D-Dimer, Quantitative 560.0 H Sodium 139 Potassium 2.7 L Chloride 99 L Carbon Dioxide 25 Anion Gap 17.7 BUN 10 Creatinine 0.88 BUN/Creatinine Ratio 11.4 Random Glucose 109 H Serum Osmolality 277.2 Calcium 8.5 Magnesium 1.9 Total Bilirubin 0.8 AST 16 ALT 11 Alkaline Phosphatase 90 LD Total 144 Creatine Kinase 31 Troponin I C-Reactive Protein 2.3 H B-Natriuretic Peptide 249.0 H* Serum Total Protein 6.6 Albumin 4.0 Globulin 2.6 Albumin/Globulin Ratio 1.5 Urine Color Urine Appearance Urine pH Ur Specific [place] Urine Protein Urine Glucose (UA) Urine Ketones Urine Blood Urine Nitrite Urine Bilirubin Urine Urobilinogen Ur Leukocyte Esterase Urine RBC Urine WBC Ur Epithelial Cells Urine Bacteria 09/28/20 09/28/20 03:41 04:41 WBC RBC Hgb Hct MCV MCH MCHC RDW Plt Count MPV Absolute Neuts (auto) Absolute Lymphs (auto) Absolute Monos (auto) Absolute Eos (auto) Absolute Basos (auto) Neutrophils % Lymphocytes % Monocytes % Eosinophils % Basophils % PTT (SP) D-Dimer, Quantitative Sodium Potassium Chloride Carbon Dioxide Anion Gap BUN Creatinine BUN/Creatinine Ratio Random Glucose Serum Osmolality Calcium Magnesium Total Bilirubin AST ALT Alkaline Phosphatase LD Total Creatine Kinase Troponin I < 0.02 C-Reactive Protein B-Natriuretic Peptide Serum Total Protein Albumin Globulin Albumin/Globulin Ratio Urine Color Yellow Urine Appearance Clear Urine pH 7.5 Ur Specific [place] 1.015 Urine Protein Negative Urine Glucose (UA) Negative Urine Ketones Negative Urine Blood Negative Urine Nitrite Negative Urine Bilirubin Negative Urine Urobilinogen 0.2 Ur Leukocyte Esterase Negative Urine RBC 0 Urine WBC 0-1 Ur Epithelial Cells 1-3 Urine Bacteria 0 - EKG/XRAY/CT EKG: Sinus - Normal sinus rhythm, heart rate 60, no ST elevation or Q waves noted, left axis deviation noted, prolonged NM interval 210 ms, prolonged QTc interval 474 ms, compared to 11/14/2019 EKG appears unchanged XRAY: chest - No acute processes per my read Departure - Departure Clinical Impression: COVID-19, Gastroenteritis Anxiety disorder Qualifiers: Anxiety disorder type: unspecified anxiety disorder Qualified Code(s): F41.9 - Anxiety disorder, unspecified Time of Disposition: 05:08 Disposition: Discharge to Home or Self Care Condition: Fair Departure Forms: ED Discharge - Pt. Copy, Patient Portal Self Enrollment Instructions: Coronavirus Disease 2019 (COVID-19), Anxiety, Adult (DC), Viral Gastroenteritis, Adult (DC) Diet: resume usual diet Activity: increase activity as tolerated Referrals: Scott Vo MD [Primary Care Provider] - 1-2 Weeks Home Medications: Ambulatory Orders Atenolol 25 mg PO DAILY #0 06/26/13 Gabapentin 300 mg PO TID 09/22/16 Losartan Potassium & Hydrochlo [Losartan Potassium/Hydroc 50-12.5 mg] 25 mg PO DAILY 09/07/18 Cetirizine HCl [Zyrtec] 10 mg PO DAILY 11/14/19 Escitalopram [Lexapro] 10 mg PO DAILY 11/14/19 Apoaequorin [Prevagen] 10 mg PO DAILY 11/15/19 Ascorbic Acid [Vitamin C 500 mg] 1 tab PO DAILY 11/15/19 Bifidobacterium Infantis [Align] 4 mg PO DAILY 11/15/19 Guaifenesin [Mucinex] 600 mg PO BID PRN 11/15/19 HYDROcodone 10MG/APAP 325MG [[place] 10/325] 10 mg PO TID 11/15/19 Pumpkin Seed-Soy Germ [Azo Bladder Control/Go-Le] 1 cap PO DAILY 11/15/19 Magnesium Hydroxide [Milk Of Magnesia] 30 ml PO DAILY PRN ud 11/17/19 Polyethylene Glycol 3350 [Miralax] 17 gm PO DAILY 20 Days #20 pckt 11/17/19 Rivaroxaban [Xarelto] 10 mg PO DAILY 26 Days #26 tab 11/17/19 Aspirin [Aspirin Adult Low Dose] 81 mg PO DAILY #14 tab 02/05/20 Additional Instructions: Remain well-hydrated and gradually advance your diet activity level as tolerated. You may take the Zofran as directed for nausea. Return the ED if your symptoms worsen or other concerning symptoms develop such as intractable nausea and vomiting, large volume or frequent diarrhea, chest pain, shortness of breath, abdominal pain, etc. Follow-up with your primary care physician is recommended in the next 2 to 3 days for repeat evaluation via telephone or sooner as needed. You will need to continue self-isolation measures for at least 10 days since your positive test result and the least 3 days without cough or fever before discontinuing isolation/quarantine measures.
[2020-09-28] MEDS ORDERED: ALPRAZolam 0.25 MG TAB PO ONE (04:05)
[2020-09-28] MEDS ORDERED: ALPRAZolam 0.5 MG TAB ONE (04:07)
--- NOTE | 2020-09-28 04:15 | RAD ---
EXAM DESCRIPTION: Abdomen 1 View CLINICAL HISTORY: nausea, abdominal distension COMPARISON: 09/06/2019 FINDINGS: Bowel: No dilated loops of large or small bowel. Peritoneum: No free intraperitoneal air identified. Solid organs: No definite organomegaly. Calcifications: No abnormal calcifications. Bones: Prior intramedullary buck and nail fixation of the right femoral neck. Posterior buck and screw fixation at L5/S1. Other: Cholecystectomy. IMPRESSION: Nonobstructive bowel gas pattern. Electronically signed by: William Garibay 09/28/2020 4:13 AM [facility]
--- NOTE | 2020-09-28 04:27 | RAD ---
EXAM: XR Chest, 1 View CLINICAL HISTORY: The patient is 85 years old and is Female; dyspnea, COVID+ TECHNIQUE: Single upright portable view of the chest. COMPARISON: February 05, 2020. FINDINGS: Lungs: Unremarkable. No consolidation. Pleural space: Unremarkable. No pneumothorax. Heart: The cardiac silhouette is enlarged versus artifact of AP technique. Mediastinum: Unremarkable. Bones/joints: Mild scoliosis. No acute rib fracture. Upper abdomen: No free air in the visualized upper abdomen. IMPRESSION: No acute cardiopulmonary process identified. Electronically signed by: Lilly Edwards MD 09/28/2020 4:25 AM [facility]
[2020-09-28] MEDS ORDERED: POTASSIUM CHLORIDE 20 MEQ TAB PO ONE (04:57)
[2020-09-28 05:03] VITALS: BP 167/75
[2020-09-28] MEDS ORDERED: ONDANSETRON ODT (ER DISP) 8 MG TAB PO ONE (05:09)
[2020-09-28 05:20] VITALS: TEMP 98; O2SAT 99
== END 2020-09-28 05:20 | disposition home or self-care (01) ==
LOC: ER 03:11
DX: U07.1 COVID-19 (principal); K52.9 Noninfective gastroenteritis and colitis, unspecified; F41.9 Anxiety disorder, unspecified; I45.81 Long QT syndrome; I51.9 Heart disease, unspecified; I10 Essential (primary) hypertension; Z87.891 Personal history of nicotine dependence; Z79.899 Other long term (current) drug therapy; Z79.82 Long term (current) use of aspirin; Z86.73 Personal history of transient ischemic attack (TIA), and cerebral infarction without residual deficits
CPT/HCPCS: 71045; 74018; 80053; 81001; 82550; 83615; 83735; 83880; 84484; 85025; 85379; 85730; 86140; 93005; J2405; J7040